=== PATIENT | female | born 1960 | race Caucasian/White ===

== ENCOUNTER 2016-12-14 12:13 | Emergency (ER) | payer BC ==
[~2016-12-14] VITALS: Ht 157.5 cm; Wt 105.2 kg
[~2016-12-14 12:13] MED LIST: ALBU17AE13 IH; BACL10TA PO; CELE200C PO; CYAN10009; DICY10CA59 PO; DIPH-179 PO; DULO60CA41 PO; ELET20TA PO; ESOM40CA PO; ESZO3TAB10 PO; FEXO60TA PO; FLUT1DIS IH; FURO10VI27 IVP; FURO40SO5 PO; GLU500 PO; HYDR4TAB26 PO; LANS30CA10 PO; LANTANAPROST OP; LORA-258 PO; LOVENOX; META800T11 PO; OLME20TA14 PO; ONDA8TAB6 PO; OXYC80TA28 PO; PROC10TA PO; REGLAN; SOM350 PO; SPIR100T24 PO; SPIRIVA INH; VENL150C2 PO; VIT1TABL67 PO; WELSR150 PO; ZOLP12.550 PO; ZOLP6.252 PO
[2016-12-14 12:53] VITALS: BP 108/70; PULSE 84; RESP 16; TEMP 97; O2SAT 95
--- NOTE | 2016-12-14 13:00 | NUR ---
Patient triaged and placed in waiting room. VSS and patient appears in no acute distress at this time. Accompanied by , awaiting available bed, and MD notified of need for MSE.
--- NOTE | 2016-12-14 13:09 | NUR ---
EMT IN TRIAGE TO DO EKG
--- NOTE | 2016-12-14 13:12 | NUR ---
DR DÍAZ MADE AWARE OF PT AND EKG SHOWN TO MD, NO FURTHER ORDERS AT THIS TIME
--- NOTE | 2016-12-14 13:44 | NUR ---
Patient to ER bed 8 to gown for evaluation. Side rails up. Report given to ARELIS SMITH.
--- NOTE | 2016-12-14 13:50 | NUR ---
when pt was brought to the room, pt states she want to leave because her has a doctors appointment. Patient urged importance to stay but pt states "Im going and ill call to see if i can come back later"
== END 2016-12-14 13:50 | disposition left against medical advice (07) ==
LOC: SED 12:13
DX: R07.9 Chest pain, unspecified (principal); Z53.21 Procedure and treatment not carried out due to patient leaving prior to being seen by health care provider
CPT/HCPCS: 93005; 99281

== ENCOUNTER 2017-09-14 15:32 | Emergency (ER) | payer BC ==
[~2017-09-14] VITALS: Ht 157.5 cm; Wt 102.1 kg
[2017-09-14 15:32] VITALS: BP_SYST 145
[~2017-09-14 15:32] MED LIST changes: -LANS30CA10 PO; -VENL150C2 PO; -ZOLP6.252 PO
[2017-09-14 16:36] VITALS: BP_SYST 140
== END 2017-09-14 16:35 | disposition home or self-care (01) ==
LOC: SED 15:32
DX: S90.31XA Contusion of right foot, initial encounter (principal); R21 Rash and other nonspecific skin eruption; J45.909 Unspecified asthma, uncomplicated; K21.9 Gastro-esophageal reflux disease without esophagitis; I10 Essential (primary) hypertension; G43.909 Migraine, unspecified, not intractable, without status migrainosus; M79.7 Fibromyalgia; Z90.49 Acquired absence of other specified parts of digestive tract; Z90.89 Acquired absence of other organs; Z90.710 Acquired absence of both cervix and uterus; Z88.6 Allergy status to analgesic agent; Z91.041 Radiographic dye allergy status; Z88.8 Allergy status to other drugs, medicaments and biological substances; W22.03XA Walked into furniture, initial encounter; Y93.01 Activity, walking, marching and hiking; Y92.89 Other specified places as the place of occurrence of the external cause; Y99.8 Other external cause status
CPT/HCPCS: 99284

== ENCOUNTER 2017-11-06 01:02 | Emergency (ER) | payer BC ==
[~2017-11-06] VITALS: Ht 157.5 cm; Wt 102.1 kg
[~2017-11-06 01:02] MED LIST changes: -ALBU17AE13 IH; +ALBU2.5V7 INH; +ALBU8.5H8 INH; -BACL10TA PO; -CELE200C PO; +CYAN100067 PO; -DICY10CA59 PO; -DIPH-179 PO; -ELET20TA PO; -ESZO3TAB10 PO; -FEXO60TA PO; -FLUT1DIS IH; -FURO10VI27 IVP; -GLU500 PO; +MAGN64TA11 PO; -OLME20TA14 PO; -OXYC80TA28 PO; +POTA20LI25 PO; -SPIRIVA INH; -VIT1TABL67 PO
[2017-11-06 01:18] VITALS: BP_SYST 119
[2017-11-06 03:30] VITALS: BP_SYST 121
== END 2017-11-06 03:30 | disposition home or self-care (01) ==
LOC: SED 01:02
DX: Z46.59 Encounter for fitting and adjustment of other gastrointestinal appliance and device (principal); J45.909 Unspecified asthma, uncomplicated; G43.909 Migraine, unspecified, not intractable, without status migrainosus; M79.7 Fibromyalgia; Z88.8 Allergy status to other drugs, medicaments and biological substances; Z79.899 Other long term (current) drug therapy
CPT/HCPCS: 99283

== ENCOUNTER 2017-12-11 14:42 | Emergency (ER) | payer BC ==
[~2017-12-11] VITALS: Ht 157.5 cm; Wt 86.2 kg
[2017-12-11 14:42] VITALS: BP_SYST 152
[2017-12-11 16:40] VITALS: BP_SYST 135
== END 2017-12-11 16:40 | disposition home or self-care (01) ==
LOC: SED 14:42
DX: M25.571 Pain in right ankle and joints of right foot (principal); J45.909 Unspecified asthma, uncomplicated; J44.9 Chronic obstructive pulmonary disease, unspecified; K21.9 Gastro-esophageal reflux disease without esophagitis; I10 Essential (primary) hypertension; G43.909 Migraine, unspecified, not intractable, without status migrainosus; Z86.79 Personal history of other diseases of the circulatory system; Z88.6 Allergy status to analgesic agent; Z88.8 Allergy status to other drugs, medicaments and biological substances; Z79.899 Other long term (current) drug therapy
CPT/HCPCS: 99284

== ENCOUNTER 2018-06-15 06:59 | Day surgery (SDC) | payer BC ==
[~2018-06-15] VITALS: Ht 157.5 cm; Wt 83.0 kg
[~2018-06-15 06:59] MED LIST changes: +CYAN100010 PO; -CYAN100067 PO; -MAGN64TA11 PO; -META800T11 PO; +META800T85 PO; -PROC10TA PO; +PROC10TA13 PO; +SLOW-MAG64 M1 PO
[2018-06-15] MEDS ORDERED: SIMETHICONE 40 MG/0.6 ML ML ONE (07:16)
[2018-06-15] MEDS ORDERED: MIDAZOLAM HCL 5 MG/5 ML VIAL IVP ONE (08:45)
[2018-06-15] MEDS ORDERED: PROPOFOL 200MG/ 20ML VIAL (DIPRIVAN) IV ONE (08:45)
[2018-06-15] MEDS ORDERED: fentaNYL CITRATE/PF 100 MCG/2 ML AMP IVP ONE (08:45)
[2018-06-15] MEDS ORDERED: D5/0.45 NS 1,000 ML IV.SOLN IV ONE (08:45)
[2018-06-15] MEDS ORDERED: WATER FOR IRRIGATION,STERILE 1,000 ML IRRIG.SOLN IR ONE (08:45)
[2018-06-15] MEDS ORDERED: LR 1,000 ML IV SCH (09:41)
[2018-06-15] MEDS ORDERED: HYDROmorphone 2 MG/ML VIAL IVP PRN ×2 (09:45)
[2018-06-15] MEDS ORDERED: HYDROmorphone 1 MG INJ. 1 MG/ML AMPUL IVP PRN (09:45)
[2018-06-15] MEDS ORDERED: MEPERIDINE HCL/PF 25 MG/ML DISP.SYRIN IVP PRN (09:45)
[2018-06-15 11:45] VITALS: BP_SYST 142
[2018-06-21] MEDS ORDERED: LEVO25TA2 PO (02:18)
[2018-06-21] MEDS ORDERED: HYDR-3698 PO (02:18)
[2018-06-21] MEDS ORDERED: POTA20TA83 PO (02:18)
[2018-06-21] MEDS ORDERED: MAGN400T10 PO ×2 (02:18)
[2018-06-21] MEDS ORDERED: ELET20TA PO (02:18)
[2018-06-21] MEDS ORDERED: FURO-149 PO (02:18)
[2018-06-21] MEDS ORDERED: ZOLP5TAB2 PO (02:18)
== END 2018-06-15 11:10 | disposition home or self-care (01) ==
LOC: SDS 06:59 → SMU 06:59 → SDS 11:10
PROVIDERS: ATTEND Internal Medicine Gastroenterology
DX: K56.699 Other intestinal obstruction unspecified as to partial versus complete obstruction (principal); Z86.010 Personal history of colon polyps; K57.30 Diverticulosis of large intestine without perforation or abscess without bleeding; J45.909 Unspecified asthma, uncomplicated; E66.01 Morbid (severe) obesity due to excess calories; E11.9 Type 2 diabetes mellitus without complications; Z88.8 Allergy status to other drugs, medicaments and biological substances; G43.909 Migraine, unspecified, not intractable, without status migrainosus; F32.9 Major depressive disorder, single episode, unspecified; Z68.33 Body mass index [BMI] 33.0-33.9, adult
CPT/HCPCS: 44382; 45331; 82962; 88305; J2250; J2704; J3010; J7120

== ENCOUNTER 2018-08-17 13:25 | Inpatient (IN) | payer BC ==
[~2018-08-17] VITALS: Ht 157.5 cm; Wt 81.2 kg
[2018-08-17 13:25] VITALS: BP_SYST 165
[~2018-08-17 13:25] MED LIST changes: +ELET20TA PO; +FURO-149 PO; +HYDR-3698 PO; +LEVO25TA2 PO; +MAGN400T10 PO; +POTA20TA83 PO; +ZOLP5TAB2 PO
--- NOTE | 2018-08-17 13:25 | NUR ---
BROUGHT BACK TO BED #4 VIA WHEELCHAIR, PLACED IN BED #4 AND TRIAGED. REPORT GIVEN TO LISA
--- NOTE | 2018-08-17 14:07 | NUR ---
Pt AAOx4 wheeled into ED from DONNA Landin's office for evaluation of abnormal lab value Magnesium 1.0. Pt recently had hernia repair sx at [facility] and was released on 07/13/2018. Pt has also recently been admitted to [facility] for Sepsis. Pt is no longer on antibiotic treatment. Pt states she took Potassium and Magnesium supplements as the low levels of magnesium and potasssium are a chronic issue. Pt skin pink dry and warm, breathing even and unlabored. No other injuries/complaints per pt/noted. Will continue to monitor.
--- NOTE | 2018-08-17 14:14 | NUR ---
ER Dr. Damian at bedside examining patient.
--- NOTE | 2018-08-17 14:45 | NUR ---
LAb at bedside for blood draw
[2018-08-17 14:58] LABS: HEMATOCRIT 40.5 % (36-48); MEAN CORPUSCULAR HEMOGLOBIN 29 pg (27-31); MEAN CORPUSCULAR HGB CONC 32 % (32-36); MEAN CORPUSCULAR VOLUME 90 fL (79.0-98.0); PLATELET COUNT (AUTO) 497 K/uL (130-430); RED BLOOD CELL COUNT(AUTO) 4.51 MIL/uL (4.2-6.2); RED CELL DISTRIBUTION WIDTH 19.2 % (9.0-15.0); WHITE BLOOD COUNT (AUTO) 9.1 K/uL (4.8-10.8)
[2018-08-17 15:07] LABS: CALCIUM 9.5 mg/dL (8.4-11.0); CREATININE 2.01 mg/dL (0.55-1.30)
[2018-08-17 15:13] LABS: TOTAL BILIRUBIN 0.8 mg/dL (0.0-1.0)
[2018-08-17 15:29] LABS: BAND % (MANUAL) 0 % (0-6); BASOPHILS % (MANUAL) 0 % (0-2); EOSINOPHILS % (MANUAL) 0 % (0-7); LYMPHOCYTES % (MANUAL) 25 % (20-46); MONOCYTES % (MANUAL) 8 % (0-11)
[2018-08-17] MEDS ORDERED: POTASSIUM CHLORIDE 10 MEQ in NACL 0.9% 1,000 ML IV SCH (15:45)
[2018-08-17] MEDS ORDERED: MAGNESIUM SULFATE 1 GM/2 ML VIAL IVP ONE (15:45)
[2018-08-17] MEDS ORDERED: MAGNESIUM SULFATE 50 ML IV ONE (16:00)
[2018-08-17] MEDS ORDERED: POTASSIUM CHLORIDE 20 MEQ/PKT PACKET PO ONE (16:00)
--- NOTE | 2018-08-17 16:29 | NUR ---
Magnesium 1g IVP administered. Pt tolerated well. No adverse reactions noted.
--- NOTE | 2018-08-17 16:39 | NUR ---
Patient will be admitted to [facility]. Admitted to TELEMETRY unit. Will go to room 101A. Summary report printed. Report will be given at bedside.
--- NOTE | 2018-08-17 16:50 | NUR ---
ADMISSION NOTE Received patient from ER via errol, received report from POWER HAIR CLIPPER. Patient admitted with diagnosis of DEHYDRATION AND HYPOKALEMIA. Patient oriented to hospital routine, call light, toileting and safety-patient verbalized understanding.
--- NOTE | 2018-08-17 16:50 | NUR ---
ADMISSION NOTE Received patient from ER via gurney. Patient admitted with diagnosis of dehydration, hypokalemia, hypomagnesia, under the care of dr nina. Patient oriented to hospital routine, call light, toileting and safety-patient verbalized understanding.
[2018-08-17 17:00] VITALS: BP_SYST 148
[2018-08-17] MEDS ORDERED: LORazepam 1 MG TABLET PO SCH (17:00)
[2018-08-17] MEDS ORDERED: cloNIDine HCL 0.1 MG TABLET PO PRN (17:00)
[2018-08-17] MEDS ORDERED: ELETRIPTAN HYDROBROMIDE 20 MG PO SCH (17:00)
[2018-08-17] MEDS ORDERED: ALBUTEROL SULFATE 0.083% 2.5 MG/3 ML VIAL.NEB INH PRN (17:00)
[2018-08-17] MEDS ORDERED: CARISOPRODOL 350 MG TABLET PO SCH (17:00)
--- NOTE | 2018-08-17 17:09 | NUR ---
dr nina at bedside
[2018-08-17] MEDS ORDERED: MORPHINE 4 MG/ML INJ. SYRINGE IVP PRN (17:15)
[2018-08-17] MEDS ORDERED: DEXTROSE 50% JECT 50 ML DISP.SYRIN IVP PRN (17:15)
[2018-08-17] MEDS ORDERED: MORPHINE 2 MG/ML INJ. SYRINGE IVP PRN (17:15)
[2018-08-17 17:22] VITALS: BP_SYST 180
[2018-08-17] MEDS: NACL 0.9% 1,000 ML IV SCH ×3 (17:48→22:19)
--- NOTE | 2018-08-17 18:29 | NUR ---
CLOSING NOTE PT SITTING UP IN BED, AT BEDSIDE, IVF INFUSING AT 500ML, IV SITE INTACT, NO S/S INFILTRATION NOTED. SAFETY PRECAUTIONS IN PLACE, CALL LIGHT WITHIN REACH, WILL GIVE REPORT TO FOLLOWING SHIFT
[2018-08-17] MEDS ORDERED: HYDROmorphone 1 MG INJ. 1 MG/ML AMPUL IVP PRN (18:30)
--- NOTE | 2018-08-17 19:30 | NUR ---
DR. JUNIOR AT BEDSIDE Dr. Junior at bedside speaking with patient and spouse.
--- NOTE | 2018-08-17 19:52 | NUR ---
OPENING NOTES Pt and endorsement received from morning shift nurse. Pt is awake, alert and lying in bed. at bed side. IVF NS 500ml/hr infusing well. Will continue to monitor. Addendum: 08/17/18 at 1957 by Rahel Alford RN Call light with pt, bed alarm on and bed at its lowest. Safety precautions instilled.
[2018-08-17 20:00] VITALS: BP_SYST 179
--- NOTE | 2018-08-17 20:06 | NUR ---
ROOM CHANGE to 110-A/ (+)MRSA Pt was moved to room 110-A due to positive MRSA of the Nares. Call light with pt, bed at its lowest and bed alarm on. Will continue to monitor. Addendum: 08/18/18 at 0053 by Rahel Alford RN ROOM WAS CHANGED DUE TO HISTORY OF MRSA. MRSA SPECIMEN OF THE NARES COLLECTED AND SENT TO THE LAB.
[2018-08-17 20:13] LABS: CALCIUM 9.3 mg/dL (8.4-11.0); CREATININE 1.79 mg/dL (0.55-1.30)
[2018-08-17 20:27] LABS: POTASSIUM 3.4 mmol/L (3.5-5.1)
[2018-08-17] MEDS: ONDANSETRON HCL 4 MG/2 ML VIAL IVP PRN (20:27)
[2018-08-17] MEDS ORDERED: POTASSIUM CHLORIDE 20 MEQ TAB.PRT.SR PO SCH (21:00)
[2018-08-17] MEDS ORDERED: POTASSIUM CHLORIDE 20 MEQ TAB.PRT.SR PO ONE (21:00)
--- NOTE | 2018-08-17 21:25 | NUR ---
RECEIVED CALL FROM DR EL. AWARE OF POTASSIUM LEVELS AND FLUID RATE. WILL PLACE NEW ORDERS. DR EL STATE "DO NOT CALL ME FOR ANY OF THOSE REASONS".
[2018-08-17] MEDS: DIPHENOXYLATE HCL/ATROP SULF 2.5 MG TAB PO PRN (21:53)
[2018-08-17] MEDS: ENOXAPARIN SODIUM 30 MG/0.3 ML SYRINGE SUBCUT SCH (21:54)
[2018-08-17] MEDS: INSULIN REGULAR, HUMAN 100 UNITS/ML, 10 ML VIAL (novoLIN R) SUBCUT PRN (22:11)
--- NOTE | 2018-08-17 22:31 | NUR ---
SURGICAL WOUND CARE PHOTOS Photo was taken of patient's surgical wound to mid abdomen area. Photo will be printed out and documented on wound care photographic wound form and placed in chart.
[2018-08-17] MEDS: HYDROmorphone 1 MG INJ. 1 MG/ML AMPUL IVP PRN (23:40)
--- NOTE | 2018-08-17 23:40 | NUR ---
DRESSING CHANGE/PAIN MED (DILAUDED 1MG) GIVEN Dressing changed on the abdominal wound. Cleaned with sterile water and applied packing strip and covered with dressing. Pt complained of abdominal pain on the wound site, Dilauded 1mg/ml IVP given as ordered. Educated on side effects of pain medication and pt acknowledges it. Call light with pt, bed at its lowest and bed alarm on. Will continue to monitor. Addendum: 08/18/18 at 0541 by Rahel Alford RN Pt's pain scale is 9/10.
[2018-08-18] VITALS (8 sets, daily range): BP systolic 125–165
[2018-08-18] MEDS: HYDROmorphone 1 MG INJ. 1 MG/ML AMPUL IVP PRN ×2 (03:55→08:01)
[2018-08-18 04:11] LABS: BILIRUBIN,URINE 3+ (NEGATIVE); BLOOD, URINE 3+ (NEGATIVE); CLARITY/URINE HAZY (CLEAR); COLOR,URINE GREEN (YELLOW); GLUCOSE,URINE TRACE (NEGATIVE); KETONES,URINE NEGATIVE (NEGATIVE); LEUKOCYTE ESTERASE ,URINE 3+ (NEGATIVE); NITRITE, URINE NEGATIVE (NEGATIVE); PH,URINE 8.5 (5.0-8.0); PROTEIN URINE TRACE (NEGATIVE); UROBILINOGEN,URINE 0.2 (0.2-1.0)
[2018-08-18 04:58] LABS: BACTERIA,URINE MANY /HPF (None Seen); MUCUS,URINE None Seen /LPF (None Seen); YEAST,URINE None Seen /HPF (None Seen)
[2018-08-18] MEDS: NACL 0.9% 1,000 ML IV SCH ×4 (05:12→22:19)
--- NOTE | 2018-08-18 05:37 | NUR ---
PAIN MED/DILAUDED 1MG/ML GIVEN Pt complained of pain on abdominal wound with a scale of 9/10. Dilauded 1mg/ml given via IVP as ordered. Educated on side effects of pain medication. Safety precautions maintained. Call light with pt, bed at its lowest and bed alarm on. Will continue to monitor.
[2018-08-18 06:13] LABS: BASOPHILS # (AUTO) 0.1 K/uL (0.0-0.2); BASOPHILS % (AUTO) 1.2 % (0.0-2.0); EOSINOPHILS % (AUTO) 0.3 % (0.0-4.0); HEMATOCRIT 31.7 % (36-48); HEMOGLOBIN 10.5 g/dL (12.0-16.0); LYMPHOCYTES # (AUTO) 2.3 K/uL (1.0-5.5); LYMPHOCYTES % (AUTO) 34.8 % (20.5-51.5); MEAN CORPUSCULAR HEMOGLOBIN 30 pg (27-31); MEAN CORPUSCULAR HGB CONC 33 % (32-36); MEAN CORPUSCULAR VOLUME 90 fL (79.0-98.0); MONOCYTES # (AUTO) 0.5 K/uL (0.0-1.0); MONOCYTES % (AUTO) 7.3 % (1.7-9.3); NEUTROPHILS # (AUTO) 3.6 K/uL (1.8-7.7); NEUTROPHILS % (AUTO) 56.4 % (40.0-70.0); PLATELET COUNT (AUTO) 345 K/uL (130-430); RED BLOOD CELL COUNT(AUTO) 3.53 MIL/uL (4.2-6.2); RED CELL DISTRIBUTION WIDTH 18.9 % (9.0-15.0); WHITE BLOOD COUNT (AUTO) 6.5 K/uL (4.8-10.8)
[2018-08-18 06:25] LABS: INR 1.1 (0.8-1.2); PROTHROMBIN TIME 11.1 SECS (9.5-12.5)
[2018-08-18] MEDS: LEVOTHYROXINE SODIUM 0.025 MG TABLET PO SCH (06:42)
[2018-08-18] MEDS: INSULIN REGULAR, HUMAN 100 UNITS/ML, 10 ML VIAL (novoLIN R) SUBCUT PRN ×2 (06:46→20:31)
[2018-08-18 06:47] LABS: CALCIUM 8.6 mg/dL (8.4-11.0); CREATININE 1.57 mg/dL (0.55-1.30)
[2018-08-18 07:01] LABS: POTASSIUM 2.7 mmol/L (3.5-5.1)
[2018-08-18 07:03] LABS: ALBUMIN 3.1 g/dL (3.4-4.8); PHOSPHORUS 3.1 mg/dL (2.7-4.5); THYROID STIMULATING HORMONE 0.98 uIu/mL (0.36-3.74); TOTAL BILIRUBIN 0.6 mg/dL (0.0-1.0)
--- NOTE | 2018-08-18 07:11 | NUR ---
REPORTED TO CRITICAL POTASSIUM OF 2.[address] NIKKO Mahajan was notified regarding patient's potassium level of 2.7. Dr. Mahajan ordered for patient to receive 60 meq potassium PO with dose to be given now.
--- NOTE | 2018-08-18 07:12 | NUR ---
ENDORSED 60 MEQ POTASSIUM ORDER TO DAY SHIFT NURSE Endorsed 60 meq potassium PO order to SARAH Mueller due to pharmacy still needing to verify order.
--- NOTE | 2018-08-18 07:13 | NUR ---
CLOSING NOTES Pt is awake, alert and lying in bed. With Cipriano at bed side. All needs attended and safety precautions maintained throughout the shift. Will endorse to morning shift nurse.
[2018-08-18] MEDS ORDERED: POTASSIUM CHLORIDE 20 MEQ TAB.PRT.SR PO ONE (07:15)
--- NOTE | 2018-08-18 08:00 | NUR ---
Opening Note received report from retail shift leader RN, pt resting in bed, A&Ox4, respirations even and unlabored on room air, pt complaint of pain 05/25, will give pain medication, no acute distress noted, IV site clean, dry, intact, and infusing well, spouse at bedside, pt educated on use of call light and asked to call for assistance, pt verbalized understanding, call light in reach, bed in low position, bed alarm on, fall, aspiration, and isolation precautions in place.
--- NOTE | 2018-08-18 08:05 | NUR ---
Pain Management/Medication pt complaint of pain / to lower back and abdomen, pt educated on use and side effects of PRN pain medication, pt verbalized understanding, tolerated medication administration well, no acute distress noted, fall, aspiration, and isolation precautions in place.
--- NOTE | 2018-08-18 08:11 | NUR ---
Medication pt and educated on medication use and side effects, pt and verbalized understanding, tolerated medication administration well, vital signs stable, no acute distress noted, fall and aspiration precautions in place.
--- NOTE | 2018-08-18 08:30 | NUR ---
Nutrition Update Rob Scale 18 noted. Pt admitted for dehydration, hypokalemia, hypomagnesemia Diet: clear liquid diet BMI: 40.2 kg/m2 RD to follow per nutrition care standards.
[2018-08-18] MEDS ORDERED: POTASSIUM CHLORIDE 20 MEQ TAB.PRT.SR PO SCH (09:00)
--- NOTE | 2018-08-18 09:25 | NUR ---
MD Rounds Dr. Junior at bedside examining pt, orders to advance diet to mechanical soft, orders for wound care received, verified with read back.
[2018-08-18] MEDS: CYANOCOBALAMIN 1000 mCg TABLET PO SCH (09:59)
[2018-08-18] MEDS: MAGNESIUM CHLORIDE 64 MG TABLET.DR PO SCH (09:59)
[2018-08-18] MEDS: PANTOPRAZOLE SODIUM 40 MG TAB PO SCH (09:59)
[2018-08-18] MEDS: ONDANSETRON HCL 4 MG/2 ML VIAL IVP PRN (10:04)
--- NOTE | 2018-08-18 10:06 | NUR ---
Nausea/Medication pt complaint of nausea, pt educated on use and side effects of PRN nausea medication and all medications, pt verbalized understanding, tolerated medication administration well, no acute distress noted, fall, aspiration, and isolation precautions in place.
--- NOTE | 2018-08-18 12:00 | NUR ---
Blood Glucose blood glucose 83, no insulin per sliding scale indicated per orders, fall, aspiration, and isolation precautions in place.
--- NOTE | 2018-08-18 12:30 | NUR ---
CM DCP ASSESSMENT DCP ASSESSMENT COMPLETED. Pt HAS INTERNAL PAIN MED PUMP; LAST FILLED ON 06/27/18 PER ; AND, Pt HAS A F/UP APPT FOR REFILL ON 09/22/18. Pt HAS A REMOTE DEVICE TO PLACE OVER PUMP TO ADMINISTER BOLUS PAIN MED DOSE NEEDED. PER Pt, THIS PAIN PUMP HAS CAUSED DIFFICULTIES WITH Pt BEING ACCEPTED TO SNFs IF THAT IS A RECOMMENDATION AT TIME OF DC. CM WILL REMAIN AVAILABLE NEEDED.
--- NOTE | 2018-08-18 12:51 | NUR ---
Dietitian Recommendations *Recommend Mechanical soft CCHO diet, Banatrol TID, Jim BID. Oral supplements will provide additional: 280 kcal and 5 gm protein daily. *Encourage pt to increase PO intake. Please see Nutritional Assessment for details. JENI, RD
[2018-08-18] MEDS ORDERED: CARVEDILOL 6.25 MG TABLET (COREG) PO ONE (13:00)
[2018-08-18] MEDS ORDERED: cloNIDine HCL 0.1 MG TABLET PO PRN (13:13)
[2018-08-18] MEDS ORDERED: MULTIVITS,CA,MINERALS/IRON/FA 1 TABLET PO ONE (13:15)
[2018-08-18] MEDS ORDERED: LACTOBACILLUS RHAMNOSUS GG 1 CAP CAPSULE PO ONE (13:15)
--- NOTE | 2018-08-18 13:24 | NUR ---
MD Rounds Dr. Mahajan at bedside speaking with pt and pts .
[2018-08-18] MEDS ORDERED: HYDROmorphone 1 MG INJ. 1 MG/ML AMPUL IVP PRN (13:30)
[2018-08-18] MEDS ORDERED: metroNIDAZOLE 250 MG TABLET PO ONE (13:45)
[2018-08-18] MEDS: HYDROmorphone 2 MG/ML VIAL IVP PRN ×4 (13:51→22:28)
[2018-08-18] MEDS ORDERED: CARISOPRODOL 350 MG TABLET PO PRN (13:58)
[2018-08-18] MEDS ORDERED: LORazepam 1 MG TABLET PO PRN (13:58)
[2018-08-18] MEDS ORDERED: cefTRIAXone 1 GM IVPB PREMIX 50 ML IV ONE (14:00)
[2018-08-18] MEDS ORDERED: LEVOFLOXACIN 500 MG/D5W 100 ML IV ONE (14:00)
--- NOTE | 2018-08-18 14:10 | NUR ---
Pain Management/Medication pt complaint of pain / to lower back and abdomen, pt educated on PRN pain medication use and side effects and all medications, pt verbalized understanding, pt tolerated medication administration well, no acute distress noted, fall and aspiration precautions in place.
[2018-08-18] MEDS: DIPHENOXYLATE HCL/ATROP SULF 2.5 MG TAB PO PRN ×2 (14:16→23:00)
--- NOTE | 2018-08-18 14:17 | NUR ---
Diarrhea/Medication pt complaint of diarrhea, lomotil indicated per orders, pt educated on use and side effects of medication, pt verbalized understanding, tolerated medication administration well, no acute distress noted, at bedside, fall, aspiration, and isolation precautions in place.
--- NOTE | 2018-08-18 14:55 | NUR ---
Medication/Wound Care pt educated on use and side effects of IV levaquin, pt verbalized understanding, tolerating medication administration well, no redness or swelling noted at IV site, pt educated on purpose and procedure for wound care, pt reports pain is controlled, wound care completed per wound care orders, pt reports pain is controlled during and after wound care, no acute distress noted, fall, aspiration, and isolation precautions in place.
--- NOTE | 2018-08-18 15:25 | NUR ---
Blood pressure BP 135/84, no PRN BP medication indicated at this time, no acute distress noted, fall and aspiration precautions in place.
[2018-08-18] MEDS: metroNIDAZOLE 250 MG TABLET PO SCH ×2 (16:03→20:22)
--- NOTE | 2018-08-18 16:05 | NUR ---
Medication pt educated on medication use and side effects, pt verbalized understanding, tolerated medication administration well, no acute distress noted, fall, aspiration, and isolation precautions in place.
--- NOTE | 2018-08-18 16:53 | NUR ---
Blood Glucose blood glucose 88, no insulin per sliding scale indicated per orders, pt resting in bed, at bedside, fall, aspiration, and isolation precautions in place.
--- NOTE | 2018-08-18 18:04 | NUR ---
Pain Management/Medication pt complaint of pain 9/10 to lower back and abdomen, pt educated on use and side effects of PRN pain medication, pt verbalized understanding, vital signs stable, pt tolerated medication administration well, no acute distress noted, fall, aspiration, and isolation precautions in place.
--- NOTE | 2018-08-18 19:10 | NUR ---
Closing Note pt resting in bed, A&Ox4, respirations even and unlabored on room air, pt reports pain is controlled, no acute distress noted, IV site clean, dry, intact, and infusing well, at bedside, pt educated on use of call light and asked to call for assistance, pt verbalized understanding, call light in reach, bed alarm on, bed in low position, fall, aspiration, and isolation precautions in place.
--- NOTE | 2018-08-18 19:15 | NUR ---
OPENING NOTES PT and endorsement received from morning shift nurse. Pt is awake, alert, and lying in bed. Cipriano at bed side. No complains at this time. No acute distress noted. Call light with pt, bed alarm on and bed at its lowest. Will continue to monitor.
[2018-08-18] MEDS: LACTOBACILLUS RHAMNOSUS GG 1 CAP CAPSULE PO SCH (20:21)
[2018-08-18] MEDS: MULTIVITS,CA,MINERALS/IRON/FA 1 TABLET PO SCH (20:21)
[2018-08-18] MEDS: CARVEDILOL 6.25 MG TABLET (COREG) PO SCH (20:22)
[2018-08-18] MEDS: ENOXAPARIN SODIUM 30 MG/0.3 ML SYRINGE SUBCUT SCH (20:27)
--- NOTE | 2018-08-18 22:22 | NUR ---
PAIN MED/DILAUDED 2MG/ML GIVEN Pt complained with back pain and abdominal wound pain with a scale of 9/10. Dilauded 2MG/ML given via IVP given as ordered. Emar saved another wrong time entry, see Emar details. Educated on side effects of pain meds and pt acknowledges it. Safety precautions maintained, call light with pt, bed at its lowest and bed alarm on. Will continue to monitor.
--- NOTE | 2018-08-18 22:38 | NUR ---
PAGING DR. EL TO REPORT POSITIVE BLOOD CULTURE RESULTS Paging Dr. El to report positive blood culture results.
--- NOTE | 2018-08-18 22:45 | NUR ---
REPORTED POSITIVE BLOOD CULTURE RESULTS TO DR. NIKKO Mahajan was made aware regarding patient's blood culture results: gram positive cocci in clusters. Dr. Mahajan ordered for patient to receive Vancomycin 1gm IV one dose only to be given now and for Dr. Dunne to be consulted for infectious disease. Will carry out.
--- NOTE | 2018-08-18 23:10 | NUR ---
SPOKE TO DR. EL Spoke to Dr. El to confirm if okay to give Vancomycin 1G to pt. See Emar for details. Reported all pt's allergies to him and he okayed to give the antibiotic.
[2018-08-18] MEDS ORDERED: VANCOMYCIN HCL 1 GM/NS PREMIX 250 ML IV ONE (23:30)
[2018-08-18] MEDS ORDERED: VANCOMYCIN HCL 1000 MG/VIAL IV ONE (23:50)
[2018-08-19 01:00] VITALS: BP_SYST 125
[2018-08-19] MEDS: HYDROmorphone 2 MG/ML VIAL IVP PRN ×6 (01:40→23:08)
--- NOTE | 2018-08-19 01:40 | NUR ---
PAIN MED/DILAUDED 2MG GIVEN Pt complained with back pain with a scale of 8/10. Dilauded 2mg/ml given via IVP as ordered. Educated on side effects of medication and pt acknowledges it. Safety precautions maintained. Call light with pt, bed at its lowest and bed alarm on. Will continue to monitor.
[2018-08-19] MEDS: DIPHENOXYLATE HCL/ATROP SULF 2.5 MG TAB PO PRN ×4 (02:08→22:23)
--- NOTE | 2018-08-19 03:55 | NUR ---
RESTING Pt is resting in bed with both eyes closed. at bed side. No signs of acute distress noted. Call light with pt, bed at its lowest and bed alarm on. Will continue to monitor.
--- NOTE | 2018-08-19 05:35 | NUR ---
CONSULTATION PAGED/CALLED Reason for Consultation: POSITIVE BLOOD CULTURE RESULTS Person Who was Notified: ANATOLY Consulting Physician: DR. MANN Ordering Physician: DR. EL
--- NOTE | 2018-08-19 06:01 | NUR ---
PAIN MED/DILAUDED 2MG GIVEN Pt complained of lower back pain with a scale of 9/10. Dilauded 2mg/ml given via IVP as ordered. Educated pt on side effects of medication and pt acknowledges it. Call light with pt, bed alarm on and at its lowest. Will continue to monitor.
[2018-08-19 06:21] LABS: BASOPHILS # (AUTO) 0.2 K/uL (0.0-0.2); BASOPHILS % (AUTO) 2.7 % (0.0-2.0); EOSINOPHILS # (AUTO) 0.1 K/uL (0.0-0.4); EOSINOPHILS % (AUTO) 1.2 % (0.0-4.0); HEMATOCRIT 32.8 % (36-48); HEMOGLOBIN 10.9 g/dL (12.0-16.0); LYMPHOCYTES # (AUTO) 3.1 K/uL (1.0-5.5); LYMPHOCYTES % (AUTO) 55.1 % (20.5-51.5); MEAN CORPUSCULAR HEMOGLOBIN 30 pg (27-31); MEAN CORPUSCULAR HGB CONC 33 % (32-36); MEAN CORPUSCULAR VOLUME 91 fL (79.0-98.0); MONOCYTES # (AUTO) 0.5 K/uL (0.0-1.0); MONOCYTES % (AUTO) 8.9 % (1.7-9.3); NEUTROPHILS # (AUTO) 1.8 K/uL (1.8-7.7); NEUTROPHILS % (AUTO) 32.1 % (40.0-70.0); PLATELET COUNT (AUTO) 265 K/uL (130-430); RED BLOOD CELL COUNT(AUTO) 3.61 MIL/uL (4.2-6.2); RED CELL DISTRIBUTION WIDTH 18.8 % (9.0-15.0); WHITE BLOOD COUNT (AUTO) 5.7 K/uL (4.8-10.8)
[2018-08-19] MEDS: LEVOTHYROXINE SODIUM 0.025 MG TABLET PO SCH (06:29)
[2018-08-19] MEDS: INSULIN REGULAR, HUMAN 100 UNITS/ML, 10 ML VIAL (novoLIN R) SUBCUT PRN ×2 (06:33→20:46)
[2018-08-19 06:49] LABS: CREATININE 1.33 mg/dL (0.55-1.30)
--- NOTE | 2018-08-19 07:15 | NUR ---
CLOSING NOTES Pt is awake, alert and lying in bed. at bed side. No acute distress noted. All needs attended and safety precautions maintained throughout the shift. Will endorse to morning shift nurse.
[2018-08-19 07:18] LABS: POTASSIUM 2.7 mmol/L (3.5-5.1)
[2018-08-19] MEDS ORDERED: POTASSIUM CHLORIDE 20 MEQ/PKT PACKET PO ONE ×2 (07:30→11:00)
[2018-08-19 07:50] LABS: TOTAL IRON BIND. CAPACITY 181 ug/dL (250-450)
[2018-08-19 07:59] LABS: RETICULOCYTE COUNT 1.4 % (0.5-1.5)
[2018-08-19 08:00] VITALS: BP_SYST 145
--- NOTE | 2018-08-19 08:00 | NUR ---
Opening Note/Refuse bed alarm received report from commercial shrimping captain RN, pt resting in bed, A&Ox4, respirations even and unlabored on room air, pt reports pain is controlled at this time, no acute distress noted, IV site clean, dry, and intact, pt educted on use of call light and asked to call for assistance, pt verbalized understanding, call light in reach, pt educated on use of bed alarm for pt safety, pt refusing bed alarm, bed in low position, fall, aspiration, and isolation precautions in place.
--- NOTE | 2018-08-19 08:29 | NUR ---
Diarrhea/Medication pt complaint of diarrhea, pt educated on use and side effects of PRN medication for diarrhea and all medications, pt verbalized understanding, tolerated medication administration well, no acute distress noted, fall, aspiration, and isolation precautions in place.
[2018-08-19] MEDS: ONDANSETRON HCL 4 MG/2 ML VIAL IVP PRN (08:36)
--- NOTE | 2018-08-19 08:41 | NUR ---
Nausea/Medication pt complaint of nausea, pt educated on use and side effects of PRN nausea medication, pt verbalized understanding, tolerated medication administration well, no acute distress noted, fall, aspiration, and isolation precautions in place.
[2018-08-19] MEDS: cefTRIAXone 1 GM IVPB PREMIX 50 ML IV SCH (09:58)
[2018-08-19] MEDS: CYANOCOBALAMIN 1000 mCg TABLET PO SCH (09:59)
[2018-08-19] MEDS: metroNIDAZOLE 250 MG TABLET PO SCH ×4 (09:59→20:32)
[2018-08-19] MEDS: MULTIVITS,CA,MINERALS/IRON/FA 1 TABLET PO SCH ×2 (09:59→20:32)
[2018-08-19] MEDS: MAGNESIUM CHLORIDE 64 MG TABLET.DR PO SCH (09:59)
[2018-08-19] MEDS: CARVEDILOL 6.25 MG TABLET (COREG) PO SCH ×2 (09:59→20:33)
[2018-08-19] MEDS: LACTOBACILLUS RHAMNOSUS GG 1 CAP CAPSULE PO SCH ×2 (09:59→20:32)
[2018-08-19] MEDS: PANTOPRAZOLE SODIUM 40 MG TAB PO SCH (10:00)
--- NOTE | 2018-08-19 10:14 | NUR ---
Pain Management/Medication pt complaint of pain 9/10 to lower back and abdomen, pt educated on use and side effects of PRN pain medication and all medications, pt verbalized understanding, tolerated medication administration well, no acute distress noted, fall and aspiration precautions in place.
[2018-08-19 10:43] VITALS: BP_SYST 140
[2018-08-19 11:35] LABS: BILIRUBIN,URINE NEGATIVE (NEGATIVE); BLOOD, URINE NEGATIVE (NEGATIVE); CLARITY/URINE CLEAR (CLEAR); COLOR,URINE YELLOW (YELLOW); GLUCOSE,URINE NEGATIVE (NEGATIVE); KETONES,URINE NEGATIVE (NEGATIVE); LEUKOCYTE ESTERASE ,URINE 1+ (NEGATIVE); NITRITE, URINE NEGATIVE (NEGATIVE); PROTEIN URINE 1+ (NEGATIVE); UROBILINOGEN,URINE 0.2 (0.2-1.0)
--- NOTE | 2018-08-19 11:42 | NUR ---
Blood Glucose/Medication blood glucose 99, no insulin indicated per sliding scale orders, pt educated on use and side effects of PO potassium, pt verbalized understanding, tolerated medication administration well, no acute distress noted, fall, aspiration, and isolation precautions in place.
[2018-08-19 11:47] LABS: BACTERIA,URINE FEW /HPF (None Seen); MUCUS,URINE 1+ /LPF (None Seen); RBC,URINE 0-3 /HPF (0-3)
--- NOTE | 2018-08-19 12:09 | NUR ---
Medication/Commode pt educated on medication use and side effects, pt verbalized understanding, tolerated medication administration well, no acute distress noted, pt assisted to bedside commode, BM x1, pt cleaned and assisted back to bed, pt in bed eating lunch, fall, aspiration, and isolation precautions in place.
--- NOTE | 2018-08-19 14:52 | NUR ---
Pain Management/Medication pt complaint of pain 9/10 to lower back and abdomen, pt educated on use and side effects of PRN pain medication, pt verbalized understanding, BP 139/79, HR 71, O2Sat 99%, respirations 17, tolerated medication administration well, no acute distress noted, fall and aspiration precautions in place.
--- NOTE | 2018-08-19 15:50 | NUR ---
Diarrhea/Medication pt complaint of diarrhea, PRN lomotil indicated per orders, pt educated on use and side effects of medication, pt verbalized understanding, tolerated medication administration well, no acute distress noted, fall, aspiration, and isolation precautions in place.
[2018-08-19] MEDS ORDERED: *CUBICIN 4 MG/KG Q48H/PHARMACY XX PRN (16:00)
--- NOTE | 2018-08-19 16:00 | NUR ---
Wound care wound care completed per guidelines, pt reports that pain is controlled, pt educated on purpose and procedure for wound care, cleansed with hydrogen peroxide, iodoform packing in place, covered with dry dressing, pt tolerated well, denies any pain during and after wound care, no acute distress noted, at bedside, fall, aspiration, and isolation precautions in place.
[2018-08-19 16:55] VITALS: BP_SYST 148
[2018-08-19] MEDS: NS IV SCH (17:11)
[2018-08-19] MEDS: DAPTOMYCIN IV SCH (17:11)
--- NOTE | 2018-08-19 17:15 | NUR ---
Medication/Blood glucose pt educated on medication use and side effects, pt verbalized understanding, tolerated medication administration well, no acute distress noted, blood glucose 116, no insulin indicated per sliding scale orders, at bedside, fall, aspiration, and isolation precautions in place.
[2018-08-19] MEDS: NACL 0.9% 1,000 ML IV SCH (18:46)
--- NOTE | 2018-08-19 18:54 | NUR ---
Pain Management/Medication pt complaint of pain 9/10 to lower back and abdomen, pt educated on use and side effects of PRN pain medication, pt verbalized understanding, BP 141/84, HR 79, respirations 17, O2Sat 97%, pt tolerated medication administration well, no acute distress noted, fall and aspiration precautions in place.
--- NOTE | 2018-08-19 19:15 | NUR ---
Closing Note pt resting in bed, A&Ox4, respirations even and unlabored on room air, pt reports pain is controlled, no acute distress noted, at bedside, IV site clean, dry, and intact, pt educated on use of call light and asked to call for assistance, pt verbalized understanding, call light in reach, bed in low position, bed alarm on, fall, aspiration, and isolation precautions in place, care endorsed to information systems security officer RN.
--- NOTE | 2018-08-19 19:20 | NUR ---
OPENING NOTES Pt is awake, alert and lying in bed. Cipriano at bed side. No complains of pain at this time and no acute distress noted. Encouraged to call when needed. Call light with pt, bed alarm on and at its lowest. Will continue to monitor.
[2018-08-19 20:00] VITALS: BP_SYST 137
[2018-08-19] MEDS: POTASSIUM CHLORIDE 20 MEQ TAB.PRT.SR PO SCH (20:33)
[2018-08-19] MEDS: ENOXAPARIN SODIUM 30 MG/0.3 ML SYRINGE SUBCUT SCH (20:39)
--- NOTE | 2018-08-19 23:08 | NUR ---
PAIN MED/DILAUDED 2MG GIVEN Pt complained of lower back pain with a scale of 8/10. Dilauded 2mg/ml given via IVP as ordered. Educated on side effects and safety precautions of the medication. Call light with pt, bed alarm on and at its lowest level. Will continue to monitor.
[2018-08-20 01:28] VITALS: BP_SYST 95
--- NOTE | 2018-08-20 02:17 | NUR ---
ROUNDS Pt is awake, alert and lying in bed while watching TV. No complains at this time. No acute distress noted. Call light with pt, bed alarm on and at its lowest level. Will continue to monitor.
[2018-08-20] MEDS: HYDROmorphone 2 MG/ML VIAL IVP PRN ×5 (03:56→21:25)
--- NOTE | 2018-08-20 03:56 | NUR ---
PAIN MED/DILAUDED 2MG GIVEN Pt complained of lower back pain with a scale of 8/10. Dilauded 2mg/ml given via IVP as ordered. Educated on side effects of pain medication and safety precautions. Encouraged to use call light when needed. Call light with pt, bed alarm on and it its lowest level. Will continue to monitor.
[2018-08-20] MEDS: NACL 0.9% 1,000 ML IV SCH (04:15)
[2018-08-20] MEDS: LEVOTHYROXINE SODIUM 0.025 MG TABLET PO SCH (06:16)
[2018-08-20 06:49] LABS: CALCIUM 8.6 mg/dL (8.4-11.0); CREATININE 1.3 mg/dL (0.55-1.30); POTASSIUM 3.2 mmol/L (3.5-5.1)
--- NOTE | 2018-08-20 07:00 | NUR ---
CLOSING NOTES Pt is awake, alert, and lying in bed. Cipriano at bed side. No signs of acute distress at the moment. All needs attended and safety precautions maintained throughout the shift. Will endorse to morning shift nurse.
[2018-08-20 07:02] LABS: BASOPHILS % (AUTO) 0.3 % (0.0-2.0); EOSINOPHILS # (AUTO) 0.1 K/uL (0.0-0.4); EOSINOPHILS % (AUTO) 2.5 % (0.0-4.0); HEMOGLOBIN 9.4 g/dL (12.0-16.0); LYMPHOCYTES % (AUTO) 42.9 % (20.5-51.5); MEAN CORPUSCULAR HEMOGLOBIN 29 pg (27-31); MEAN CORPUSCULAR HGB CONC 33 % (32-36); MEAN CORPUSCULAR VOLUME 91 fL (79.0-98.0); MONOCYTES # (AUTO) 0.5 K/uL (0.0-1.0); MONOCYTES % (AUTO) 11.4 % (1.7-9.3); NEUTROPHILS # (AUTO) 1.9 K/uL (1.8-7.7); NEUTROPHILS % (AUTO) 42.9 % (40.0-70.0); PLATELET COUNT (AUTO) 253 K/uL (130-430); RED BLOOD CELL COUNT(AUTO) 3.21 MIL/uL (4.2-6.2); RED CELL DISTRIBUTION WIDTH 19.8 % (9.0-15.0); WHITE BLOOD COUNT (AUTO) 4.5 K/uL (4.8-10.8)
[2018-08-20 08:00] VITALS: BP_SYST 145
[2018-08-20] MEDS ORDERED: COMMUNICATION ORDER XX ONE (08:00)
--- NOTE | 2018-08-20 08:00 | NUR ---
Opening notes patient received resting in bed, patient is awake, alert, and oriented, Dr. Landin at bedside seeing patient, patient denies any distress or pain at this time, educated patient on plan of care and call light system, will continue to monitor, safety precautions in place, call light system within reach.
[2018-08-20] MEDS ORDERED: LORazepam 2 MG/ML VIAL IVP PRN (08:30)
[2018-08-20] MEDS ORDERED: POTASSIUM CHLORIDE 40 MEQ, MAGNESIUM SULFATE 4 GM in 0.45% NS 250 ML IV ONE (08:30)
[2018-08-20] MEDS ORDERED: LOPERAMIDE HCL 2 MG CAPSULE PO PRN (08:30)
--- NOTE | 2018-08-20 08:47 | NUR ---
CONSULTATION PAGED REASON FOR CONSULTATION:DIARRHEA, SHORT BOWEL WAS CONSULT CALLED?:Y PERSON WHO WAS NOTIFIED:ANATOLY CONSULTING PHYSICIAN:RENO KING ( [employer]) PATIENT TRANSITION SPECIALIST SPECIALTY:GI PATIENT TRANSITION SPECIALIST PHONE NUMBER:[phone] PHYSICIAN REQUESTING:KELLY DENISE
[2018-08-20] MEDS: DIPHENOXYLATE HCL/ATROP SULF 2.5 MG TAB PO PRN (09:01)
[2018-08-20] MEDS: POTASSIUM CHLORIDE 20 MEQ TAB.PRT.SR PO SCH ×3 (10:02→21:24)
[2018-08-20] MEDS: metroNIDAZOLE 250 MG TABLET PO SCH ×4 (10:02→21:24)
[2018-08-20] MEDS: MAGNESIUM CHLORIDE 64 MG TABLET.DR PO SCH (10:02)
[2018-08-20] MEDS: CYANOCOBALAMIN 1000 mCg TABLET PO SCH (10:03)
[2018-08-20] MEDS: LACTOBACILLUS RHAMNOSUS GG 1 CAP CAPSULE PO SCH ×2 (10:03→21:24)
[2018-08-20] MEDS: PANTOPRAZOLE SODIUM 40 MG TAB PO SCH (10:03)
[2018-08-20] MEDS: MULTIVITS,CA,MINERALS/IRON/FA 1 TABLET PO SCH ×2 (10:04→21:23)
[2018-08-20] MEDS: CARVEDILOL 6.25 MG TABLET (COREG) PO SCH ×2 (10:04→21:24)
[2018-08-20] MEDS: cefTRIAXone 1 GM IVPB PREMIX 50 ML IV SCH (10:04)
--- NOTE | 2018-08-20 10:10 | NUR ---
notes- spoke to MRI staff, per staff patient can eat. MRI will be done around 12 to 1300. Patient made aware.
--- NOTE | 2018-08-20 10:20 | NUR ---
NOTES PATIENT UP AMBULATING WITH PHYSICAL THERAPY, PATIENT TOLERATING WELL WITH NO SIGNS OF PAIN, DISTRESS, OR SHORTNESS OF BREATH NOTED, WILL CONTINUE TO MONITOR, SAFETY PRECAUTIONS IN PLACE.
--- NOTE | 2018-08-20 11:48 | NUR ---
INITIAL EVALUATION HAS BEEN COMPLETED. PATIENT IS SAFE TO AMBULATE WITH NURSING. SHE SHOULD USE THE WOOD ENGRAVER WALKER/PUW.
[2018-08-20 12:02] VITALS: BP_SYST 131
--- NOTE | 2018-08-20 12:10 | NUR ---
Notes patient sitting in chair at bedside, patient denies any pain, shortness of breath, or distress at this time, patient tolerating lunch well, will continue to monitor, safety precautions in place, call light within reach.
[2018-08-20] MEDS: DIPHENOXYLATE HCL/ATROP SULF 2.5 MG TAB PO SCH ×2 (12:24→17:42)
--- NOTE | 2018-08-20 14:06 | NUR ---
NOTES X-Ray informed us that the MRI will be cancelled because it will not be able to see the abscess, paged Dr. Junior, a CT is recommended by the X-ray marine diesel technician.
[2018-08-20 16:02] VITALS: BP_SYST 132
--- NOTE | 2018-08-20 16:40 | NUR ---
NOTES PATIENT RESTING IN BED, PHOTOGRAPHS OF LOWER EXTREMITIES TAKEN, PATIENT DENIES ANY PAIN OR DISTRESS AT THIS TIME, WILL CONTINUE TO MONITOR, SAFETY PRECAUTIONS IN PLACE, CALL LIGHT WITHIN REACH.
[2018-08-20] MEDS: NS IV SCH (17:09)
[2018-08-20] MEDS: DAPTOMYCIN IV SCH (17:09)
--- NOTE | 2018-08-20 18:28 | NUR ---
CLOSING NOTE PATIENT RESTING IN BED, PATIENT IS AWAKE, TOLERATED DINNER WILL, PATIENT DENIES ANY PAIN OR DISTRESS AT THIS TIME, ALL NEEDS WERE MET THROUGHOUT SHIFT, IV PATENT AND INFUSING WELL, WILL ENDORSE REPORT TO ONCOMING NURSE, SAFETY PRECAUTIONS IN PLACE, BED IN LOWEST POSITION, CALL LIGHT WITHIN REACH, ENCOURAGED TO USE CALL LIGHT.
[2018-08-20 20:31] VITALS: BP_SYST 136
[2018-08-20] MEDS: FOLIC ACID 1 MG, THIAMINE HCL 100 MG, MAGNESIUM SULFATE 1 GM, MVI 10 ML in NACL 0.9% 1,... IV SCH (21:23)
[2018-08-20] MEDS: LOPERAMIDE HCL 2 MG CAPSULE PO SCH (21:24)
[2018-08-20] MEDS: ENOXAPARIN SODIUM 30 MG/0.3 ML SYRINGE SUBCUT SCH (21:27)
--- NOTE | 2018-08-20 21:45 | NUR ---
PATIENT AWAKE ALERT ASKING FOR PAIN MEDICATION FOR GENERAL BACK PAIN .
[2018-08-20 23:34] VITALS: BP_SYST 132
--- NOTE | 2018-08-21 | NUR ---
ASSIST PATIENT FOR BSC USE FALL MEASURES TAKEN & EFFECTIVE .
[2018-08-21] MEDS: DIPHENOXYLATE HCL/ATROP SULF 2.5 MG TAB PO PRN (00:18)
--- NOTE | 2018-08-21 00:22 | NUR ---
LOMOTIL TABLET PO GIVEN FOR LOOSE STOOL ORDERED , PATIENT AWAKE ALERT .
--- NOTE | 2018-08-21 00:24 | NUR ---
DILAUDID 2 MG IVP GIVEN FOR BACK PAIN 04/24 & HELPFUL .
[2018-08-21] MEDS: HYDROmorphone 2 MG/ML VIAL IVP PRN ×5 (01:27→18:33)
--- NOTE | 2018-08-21 02:16 | NUR ---
HOURLY ROUNDING PATIENT BACK TO BED ASSIST , NEEDED USE OF BSC LOOSE STOOLS NOTED LOMOTIL TABS HELPFUL .
--- NOTE | 2018-08-21 05:04 | NUR ---
DILAUDID 2MG SIDE EFFECTS TEACHING PATIENT VERBALIZE UNDERSTANDING CALL PHILLIPS WITH PATIENT .
[2018-08-21] MEDS: NACL 0.9% 1,000 ML IV SCH (05:38)
[2018-08-21] MEDS: LEVOTHYROXINE SODIUM 0.025 MG TABLET PO SCH (06:06)
[2018-08-21 06:58] LABS: BASOPHILS # (AUTO) 0.1 K/uL (0.0-0.2); EOSINOPHILS # (AUTO) 0.2 K/uL (0.0-0.4); EOSINOPHILS % (AUTO) 4.5 % (0.0-4.0); HEMATOCRIT 31.1 % (36-48); HEMOGLOBIN 9.9 g/dL (12.0-16.0); LYMPHOCYTES # (AUTO) 2.1 K/uL (1.0-5.5); LYMPHOCYTES % (AUTO) 41.1 % (20.5-51.5); MEAN CORPUSCULAR HEMOGLOBIN 29 pg (27-31); MEAN CORPUSCULAR HGB CONC 32 % (32-36); MEAN CORPUSCULAR VOLUME 91 fL (79.0-98.0); MONOCYTES # (AUTO) 0.5 K/uL (0.0-1.0); MONOCYTES % (AUTO) 8.9 % (1.7-9.3); NEUTROPHILS # (AUTO) 2.3 K/uL (1.8-7.7); NEUTROPHILS % (AUTO) 44.5 % (40.0-70.0); PLATELET COUNT (AUTO) 242 K/uL (130-430); WHITE BLOOD COUNT (AUTO) 5.2 K/uL (4.8-10.8)
[2018-08-21 07:39] LABS: CALCIUM 9.1 mg/dL (8.4-11.0); CREATININE 0.98 mg/dL (0.55-1.30); POTASSIUM 4.1 mmol/L (3.5-5.1)
[2018-08-21 07:53] VITALS: BP_SYST 119
--- NOTE | 2018-08-21 07:57 | NUR ---
Opening Note/Refuse bed alarm received report from night warehouse selector RN, pt resting in bed, A&Ox4, respirations even and unlabored on room air, no acute distress noted, IV site clean, dry, and intact, pt educated on use of call light and asked to call for assistance, pt verbalized understanding, call light in reach, pt educated on use of bed alarm for pt safety, pt refusing bed alarm at this time, bed in low position, fall and aspiration precautions in place.
[2018-08-21] MEDS: LACTOBACILLUS RHAMNOSUS GG 1 CAP CAPSULE PO SCH ×2 (08:08→21:04)
[2018-08-21] MEDS: DIPHENOXYLATE HCL/ATROP SULF 2.5 MG TAB PO SCH ×3 (08:08→18:32)
[2018-08-21] MEDS: PANTOPRAZOLE SODIUM 40 MG TAB PO SCH (08:08)
[2018-08-21] MEDS: MULTIVITS,CA,MINERALS/IRON/FA 1 TABLET PO SCH ×2 (08:09→21:07)
[2018-08-21] MEDS: CYANOCOBALAMIN 1000 mCg TABLET PO SCH (08:09)
[2018-08-21] MEDS: CARVEDILOL 6.25 MG TABLET (COREG) PO SCH ×2 (08:09→21:07)
[2018-08-21] MEDS: metroNIDAZOLE 250 MG TABLET PO SCH ×4 (08:09→21:04)
[2018-08-21] MEDS: LOPERAMIDE HCL 2 MG CAPSULE PO SCH ×4 (08:09→21:04)
[2018-08-21] MEDS: cefTRIAXone 1 GM IVPB PREMIX 50 ML IV SCH (08:10)
[2018-08-21] MEDS: MAGNESIUM CHLORIDE 64 MG TABLET.DR PO SCH (08:10)
[2018-08-21] MEDS: POTASSIUM CHLORIDE 20 MEQ TAB.PRT.SR PO SCH ×3 (08:10→21:04)
--- NOTE | 2018-08-21 08:18 | NUR ---
Medication pt educated on medication use and side effects, pt verbalized understanding, tolerated medication administration well, no acute distress noted, fall and aspiration precautions in place.
--- NOTE | 2018-08-21 10:15 | NUR ---
Pain Management/Medication pt complaint of pain / to lower back, pt educated on use and side effects of PRN pain medication, pt verbalized understanding, vital signs stable, pt tolerated medication administration well, no acute distress noted, fall and aspiration precautions in place.
--- NOTE | 2018-08-21 11:00 | NUR ---
Wound Care wound care completed per wound care orders, pt educated on purpose and procedure, pt reports pain is controlled, cleansed with hydrogen peroxide 3%, iodaform packing in place, covered with dry gauze dressing, pt tolerated well, pt reports pain is controlled during and after wound care, no acute distress noted, fall and aspiration precautions in place.
[2018-08-21 11:08] VITALS: BP_SYST 145
[2018-08-21 11:10] VITALS: BP_SYST 151
--- NOTE | 2018-08-21 11:30 | NUR ---
Medication/Blood Glucose pt educated on use and side effects of medication, pt verbalized understanding, tolerated medication administration well, no acute distress noted, blood glucose 107, no insulin indicated per sliding scale orders, fall and aspiration precautions in place.
[2018-08-21 12:45] VITALS: BP_SYST 151
--- NOTE | 2018-08-21 13:06 | NUR ---
Medication/Notes pt assisted to bedside commode, minimal assistance required, BMx1, pt assisted back to bed, pt educated on medication use and side effects, pt verbalized understanding, tolerated medication administration well, no acute distress noted, fall and aspiration precautions in place.
--- NOTE | 2018-08-21 13:40 | NUR ---
MD Miryam Landin at bedside examining pt. Addendum: 08/21/18 at 1419 by Ami Burrell RN add: orders to continue welbutrin and cymbalta from pts home medication.
--- NOTE | 2018-08-21 14:30 | NUR ---
Pain Management/Medication pt complaint of pain /10 to lower back, pt educated on use and side effects of PRN pain medication, pt verbalized understanding, tolerated medication administration well, no acute distress noted, fall and aspiration precautions in place.
--- NOTE | 2018-08-21 14:48 | NUR ---
Nutrition F/U Admitting Diagnosis Dehydration, Hypokalemia, Hypomagnesemia Reviewed Pertinent Medical/Surgical Hx Medical Record Patient Attending Physician Medical History Comment: Pt found w/: Acute metabolic encephalopathy, Dehydration , hypokalemia , hypomagnesemia, Lumbar spondylosis and history of lumbar disk surgery, NERY/ATN, s/p Multiple abdominal surgeries Ileostomy w /revision, Chronic pain syndrome, Opioid dependence, Morphine pump, Chronic obstructive pulmonary disease, Type 2 diabetes mellitus, Morbid obesity, Migraine headache, Chronic lower extremity edema, History of tobacco use, Major depression, Short Bowel syndrome per MD notes Subjective Information Pt seen resting in bed at time of RD visit. Pt reported that she has been eating pretty well, but stated that she continues to eat, then 2 hours later, has diarrhea. RD spoke w/ Dr. Landin at nursing station who stated that pt may require some nutrition education on short-bowel nutrition therapy and suggestions for MCT oil/MVI/mineral supplementation. RD to provide. Pt may not be optimally absorbing nutrients. Current Diet Order/Nutrition Support Mechanical soft, CCHO standard carb-60 gm, Jim BID x1 day Patient/Significant Other Able To Verbalize Education Provided Not Indicated Pertinent Medications imodium, folic acid/thiamine/magnesium sulfate/MVI/mineral/NaCl IV, lomotil, culturelle, theragran, zofran, k-dur, protonix, VIT B12, synthroid, lovenox, NaCl IV Pertinent Labs K 4.1 WNL (improved), CRE 0.98 WNL (improved), ALB 3.1L, H/H 9.9 L/31.1 L Height (Feet) 5 feet Height (Inches) 2.00 inches Weight (Pounds) 179 pounds (08/18/18) Weight (Calculated Kilograms) 81.125308 kilograms Patient Weight 81.193 kg Body Mass Index 32.74 kg/m2 Usual Weight 240 lbs %UBW 75 %IBW 163 [place]/Adjusted Body Weight 110 lb, 50 kg; Adj IBW Obesity: 127 lb, 58 kg Recent Weight Change Yes - wt loss 61 lb in 2 months (25% severe) Weight Status Obese Gastrointestinal Symptoms Diarrhea Last BM Aug 18, 2018 Difficulty With: Chewing Food Allergies Yes - coconut Usual Diet At Home soft diet, home cooked meals Skin Integrity Comment: Rob scale: 19; Per RN notes, medial R abd w/ wound; heel w/ redness Current % PO Fair (50-74%) -- 76% average PO intakes x7 meals Estimated Energy Expenditure (kcals/day) 3242-2798 kcal/day (30-35 kcal/kg Adj IBW for COPD) Estimated Protein Required (g/day) 75-100 gm/day (1.5-2 gm/kg IBW for wound healing/COPD) NEW Estimated Fluid Required (l/day) 1.7-2L/day (1 ml/kcal/day for maintenance) Problem/Etiology/Signs/Symptoms Inadequate protein intake related to irregular meal as evidenced by pt's report of 2 meals per day and unhealed wound. *ongoing Expected Outcomes/Goals Monitor pt appetite and PO intake w/ goal of pt meeting at least 75% of estimated nutritional needs, labs trending WNL, normal GI function, skin integrity/wt maintenance. Dietitian Recommendations * Recommend continuing mechanical soft, CCHO standard carb-60 gm diet, w/ Jim BID. (oral supplements will provide additional 160 kcal/day and 5 gm protein/day) * Encourage pt to increase PO intake. * Consider MCT oil w/ MVI Follow Up High Risk: F/U in 2-3 days
--- NOTE | 2018-08-21 15:04 | NUR ---
Dietitian Recommendations * Recommend continuing mechanical soft, CCHO standard carb-60 gm diet, w/ Jim BID. (oral supplements will provide additional 160 kcal/day and 5 gm protein/day) * Encourage pt to increase PO intake. * Consider MCT oil w/ MVI LP, RD Please refer to Nutrition F/U for details.
[2018-08-21 15:33] VITALS: BP_SYST 126
--- NOTE | 2018-08-21 16:15 | NUR ---
WOUND EVALUATION: Late note for 1615 secondary to patient care. Wound Consult received from Dr. Landin. Thank you, Dr. Landin, for the consult. Patient received in a Uriah Bed with a mattress, awake, alert, and oriented. Patient is able to turn in bed and use bedside commode independently. Rob Score is a 17. Past Medical History: S/P Small-Bowel obstruction, Ventral Hernia Repair, Lumbar Spondylosis, history of Lumbar Disk Surgery, Hypokalemia, Ileostomy, Chronic Pain Syndrome, Opioid Dependence, Morphine Pump, Chronic Obstructive Pulmonary Disease, Diabetes Mellitus Type II, Morbid Obesity, Migraine headaches, chronic lower extremity edema, history of tobacco use, Major Depression, multiple abdominal and back surgeries. Recent Labs: WBC 5.2, RBC 3.40, hemoglobin 9.9, hematocrit 31.1, BUN 6, creatinine 0.98, GFR 63, PSA glucose 107, albumin 3.1. Microbiology: Urine culture results negative. Stool culture and Shiga toxin results negative. MRSA screen results negative. Blood culture results in progress. Intrinsic factors that delay wound healing: COPD, Diabetes Mellitus, Hypoalbuminemia. Extrinsic factors that delay wound healing: Decreased mobility. Wound Assessment: 1. Abdomen, superior wound: Nonhealing surgical wound, present on admission. Site is in the middle of the incision, with one wound inferior, and the rest of the incisional areas are healed. Wound bed has 65% pink tissue, 20% yellow tissue, 5% black eschar, 10% brown eschar. No odor, no drainage. Wound measures 3.0 cm x 2.0 cm x 1.0 cm Undermining present from 7-8 o'clock, measuring 0.3 cm, and from 11-12 o'clock, measuring 0.2 cm. 2. Abdomen, inferior wound: Nonhealing surgical wound, present on admission. Site is in the lower third of the incision, with one wound superior, and the rest of the incisional areas are healed. Visible wound bed has is 100% pink tissue, unable to visualize color of skin and bottom of wound bed. No odor, no drainage. Wound measures 0.5 cm x 0.9 cm x 0.5 cm. 100% undermining present, measuring 0.9 cm. Recommend: Cleanse wounds with normal saline. Apply sure prep to stephanie-wounds. Apply Venelex ointment onto wound beds. Pack wounds with 1/4 inch iodoform packing strip. Cover with foam dressings. Perform wound care daily, and as needed for dressing soiling or dislodgment. 3. Buttocks/gluteal sulcus area: Erythema from IAD, present on admission. 4. Perineal area: Erythema from IAD, present on admission. Recommend: Cleanse involved areas with mild soap and water. Pat dry. Apply antifungal powder to involved areas. Perform site care twice a day, and as needed for soiling. 5. Left breast fold: Moisture associated erythema, present on admission. 6. Right breast fold: Moisture associated erythema, present on admission. Recommend: Cleanse involved areas with normal saline. Pat dry. Apply antifungal powder to involved areas. Perform site care twice a day, and as needed for soiling. May place Inter-Dry AG cloth into involved areas (change Inter-Dry cloth every 5 days, and as needed for soiling). Also recommend: Encourage and assist patient as needed with repositioning [id number]-se-womd only every 2 hours with pillow support, and off-load pressure areas with pillows for pressure re-distribution. Offload, elevate and float bilateral heels with pillows. Perform skin care and monitor skin integrity Q shift. Use moisture barrier cream on buttocks and other moisture susceptible areas QID and as needed for soiling. Addendum: 08/21/18 at 1850 by Osman Higgins RN Patient verified that she has no iodine allergy.
--- NOTE | 2018-08-21 16:50 | NUR ---
Wound Care wound care consult with Osman SMITH completed today, wound care completed per wound care orders, pt and pts educated on purpose and procedure, pt and pts verbalized understanding, pt reports pain is controlled, cleansed with NS, sureprep to periwound, hydrogel to wound bed, iodaform 1/4in packing in place, covered with foam dressing, pt reports pain was controlled during and after wound care, pt tolerated well, no acute distress noted, fall and aspiration precautions in place.
[2018-08-21] MEDS: DAPTOMYCIN IV SCH (17:36)
[2018-08-21] MEDS: NS IV SCH (17:36)
--- NOTE | 2018-08-21 17:49 | NUR ---
Medication/Blood glucose pt educated on medication use and side effects, pt verbalized understanding, tolerating medication administration well, no acute distress noted, blood glucose 120, no insulin indicated per sliding scale orders, Cipriano at bedside, fall and aspiration precautions in place.
[2018-08-21] MEDS: FOLIC ACID 1 MG, THIAMINE HCL 100 MG, MAGNESIUM SULFATE 1 GM, MVI 10 ML in NACL 0.9% 1,... IV SCH (18:32)
[2018-08-21] MEDS: BALSAM PERU/CASTOR OIL 60 GM OINT...G. TP SCH (18:45)
--- NOTE | 2018-08-21 18:45 | NUR ---
Non-Admin Venelex wound care completed today, per Osman SMITH okay to start venelex for tomorrows dressing change, informed manager shift RN.
--- NOTE | 2018-08-21 18:46 | NUR ---
Pain Management/Medication pt complaint of pain / to lower back and abdomen, pt educated on use and side effects of PRN pain medication and all medications, pt verbalized understanding, vital signs stable, tolerated medication administration well, no acute distress noted, fall and aspiration precautions in place.
--- NOTE | 2018-08-21 19:15 | NUR ---
Spoke with MD Spoke with Dr. Harding, orders to D/C mohit, verified with read back.
--- NOTE | 2018-08-21 19:24 | NUR ---
Closing Note/Refuse bed alarm pt resting in bed, A&Ox4, respirations even and unlabored on room air, pt reports pain is controlled at this time, no acute distress noted, IV site clean, dry, intact, and infusing well, pt educated on use of call light and asked to call for assistance, pt verbalized understanding, call light in reach, pt educated on use of bed alarm for pt safety, pt refusing bed alarm, bed in low position, fall and aspiration precautions in place, care endorsed to Michele SMITH.
[2018-08-21 19:53] VITALS: BP_SYST 136
--- NOTE | 2018-08-21 20:45 | NUR ---
DILAUDID 2 MG IVP ADMINISTER FOR BACK PAIN 04/24 OFF LOADIN WITH POSITION CHANGE HELPFUL .
[2018-08-21] MEDS: ENOXAPARIN SODIUM 30 MG/0.3 ML SYRINGE SUBCUT SCH (21:06)
--- NOTE | 2018-08-21 21:45 | NUR ---
PATIENT AWAKE ALERT ASSIST OUT OF BED FOR BSC , LOOSE STOOLS ARE NOTED FALL MEASURES IMPLEMENTED .
[2018-08-21] MEDS: ONDANSETRON HCL 4 MG/2 ML VIAL IVP PRN (21:47)
--- NOTE | 2018-08-21 22:56 | NUR ---
ZOFRAN 4 MG IVP ADMINISTER FOR GI UPSET & HELPFUL .
--- NOTE | 2018-08-21 22:58 | NUR ---
Z GUARD OINTMENT APPLIED TO BUTTOCKS AREAS , KEPT CLEAN & DRY NEEDED .
[2018-08-22] VITALS: BP_SYST 117
--- NOTE | 2018-08-22 00:15 | NUR ---
Re assessment for DILAUDID 2 MG IVP MEDICATION EFFECTIVE 11/25 , THIS HOUR PATIENT RESTING .
--- NOTE | 2018-08-22 04:28 | NUR ---
PATIENT AWAKE ALERT ASSIST OUT OF BED TO BSC , LOOSE STOOL NOTED LOMOTIL TABLET ADMINISTER ORDERED .
--- NOTE | 2018-08-22 05:21 | NUR ---
LEFT BREAST & RIGHT BREAST INTER DRY MOISTURE - WICKING FABRIC FOR SKIN ON SKIN , IRRITATION & ERYTHEMA / REDNESS APPLIED ORDERED , PATIENT TOLERATING .
[2018-08-22] MEDS: HYDROmorphone 2 MG/ML VIAL IVP PRN ×4 (05:51→21:55)
[2018-08-22] MEDS: DIPHENOXYLATE HCL/ATROP SULF 2.5 MG TAB PO PRN (05:51)
[2018-08-22] MEDS: LEVOTHYROXINE SODIUM 0.025 MG TABLET PO SCH (06:03)
--- NOTE | 2018-08-22 08:00 | NUR ---
OPENING NOTE Patient received resting in bed, patient is alert, awake, and oriented, assisted patient to bedside commode, patient denies any pain or distress at this time, assessment completed, educated patient on plan of care and call light system, will continue to monitor, safety precautions in place, bed in lowest position, call light within reach, encouraged to use call light.
[2018-08-22 08:02] VITALS: BP_SYST 144
[2018-08-22] MEDS: LOPERAMIDE HCL 2 MG CAPSULE PO SCH ×3 (08:20→16:47)
[2018-08-22] MEDS: DULoxetine HCL 30 MG CAPSULE.DR (CYMBALTA) PO SCH (08:20)
[2018-08-22] MEDS: CYANOCOBALAMIN 1000 mCg TABLET PO SCH (08:20)
[2018-08-22] MEDS: DIPHENOXYLATE HCL/ATROP SULF 2.5 MG TAB PO SCH ×3 (08:20→17:21)
[2018-08-22] MEDS: buPROPion HCL 150 MG TABLET.SA PO SCH (08:20)
[2018-08-22] MEDS: LACTOBACILLUS RHAMNOSUS GG 1 CAP CAPSULE PO SCH ×2 (08:20→21:46)
[2018-08-22] MEDS: MULTIVITS,CA,MINERALS/IRON/FA 1 TABLET PO SCH ×2 (08:20→21:46)
[2018-08-22] MEDS: metroNIDAZOLE 250 MG TABLET PO SCH ×4 (08:21→21:46)
[2018-08-22] MEDS: CARVEDILOL 6.25 MG TABLET (COREG) PO SCH ×2 (08:21→21:36)
[2018-08-22] MEDS: POTASSIUM CHLORIDE 20 MEQ TAB.PRT.SR PO SCH ×3 (08:21→21:46)
[2018-08-22] MEDS: PANTOPRAZOLE SODIUM 40 MG TAB PO SCH (08:21)
[2018-08-22] MEDS: cefTRIAXone 1 GM IVPB PREMIX 50 ML IV SCH (08:22)
[2018-08-22] MEDS: MAGNESIUM CHLORIDE 64 MG TABLET.DR PO SCH (08:23)
[2018-08-22] MEDS: BALSAM PERU/CASTOR OIL 60 GM OINT...G. TP SCH (08:24)
[2018-08-22] MEDS ORDERED: VANCOMYCIN HCL 1,000 MG in NS 250 ML IV ONE (09:00)
--- NOTE | 2018-08-22 09:40 | NUR ---
Nutrition Consult Nutrition Consult received for Wounds on 08/21/18 6528. Pt was seen and re-evaluated by RD for Nutrition F/U on 08/21/18. Please refer to note for details.
--- NOTE | 2018-08-22 10:18 | NUR ---
Notes patient resting in bed, patient eating at this time and tolerating well, patient denies any pain or distress at this time, will continue to monitor, safety precautions in place, bed in lowest position, bed alarm on, two side rails up, call light within reach, encouraged to use call light.
--- NOTE | 2018-08-22 10:45 | NUR ---
Discharge Planning: DCP followed up with [facility] (f [phone] p [phone]) Rosie stated there were no truck terminal manager beds. DCP faxed pt referral to [facility] (f [phone] p [phone]). [facility] (f [phone] p [phone]), [facility] (f [phone] p [phone]), [facility] (f [phone] p [phone]); DCP to follow up. Addendum: 08/22/18 at 1052 by Florinda Vallejo DP NOT PUT ON WRONG PT
[2018-08-22 11:32] VITALS: BP_SYST 138
--- NOTE | 2018-08-22 12:41 | NUR ---
Notes- Up in chair, eating lunch. pain is controlled at this time. call light within reach. Enc. to call for help as needed.
--- NOTE | 2018-08-22 14:26 | NUR ---
Notes patient resting in chair at bedside, assisted patient to bedside commode, pain is tolerated at this time, will continue to monitor, no signs of distress noted, safety precautions in place, call light within reach, encouraged to use call light.
[2018-08-22 15:27] VITALS: BP_SYST 146
--- NOTE | 2018-08-22 15:28 | NUR ---
PATIENT IS UNABLE TO PARTICIPATE IN TODAY'S TREATMENT BECAUSE OF DIARRHEA. PLAN: ATTEMPT TOMORROW.
--- NOTE | 2018-08-22 16:00 | NUR ---
NOTES/wound care patient resting in bed, performed abdominal wound care, cleaned wound with NS, applied venelex ointment, packed with iodoform, and covered with nonadherent dressing, patient denies any pain or distress at this time, will continue to monitor, safety precautions in place, call light within reach.
[2018-08-22] MEDS: ONDANSETRON HCL 4 MG/2 ML VIAL IVP PRN ×2 (16:57→22:43)
[2018-08-22 17:21] VITALS: BP_SYST 154
--- NOTE | 2018-08-22 18:24 | NUR ---
Closing note patient eating dinner in chair at bedside, no distress or pain noted, family at bedside, IVF infusing well, all needs were met throughout shift, will endorse report to oncoming nurse, safety precautions in place, call light within reach.
[2018-08-22] MEDS: FOLIC ACID 1 MG, THIAMINE HCL 100 MG, MAGNESIUM SULFATE 1 GM, MVI 10 ML in NACL 0.9% 1,... IV SCH (18:45)
--- NOTE | 2018-08-22 19:10 | NUR ---
IV in left forearm painful patient requesting new IV, attempted to start new IV twice but unsuccessful, will endorse to oncoming nurse.
[2018-08-22 20:30] VITALS: BP_SYST 151
--- NOTE | 2018-08-22 20:34 | NUR ---
INITIAL NOTE AT INITIAL ASSESSMENT, PATIENT IS RESTING IN BED, STABLE, NO SIGNS OF RESPIRATORY DISTRESS. IS AT BEDSIDE. PATIENT VERBALIZES TOLERABLE. PLAN OF CARE FOR THE EVENING IS COMMUNICATED WITH THE PATIENT. CALL LIGHT- TEACH BACK IS SUCCESSFUL. BED IS LOCKED, ALARMED, AND AT THE LOWEST LEVEL. FALL AND SAFETY PRECAUTIONS WILL BE IN PLACE THROUGHOUT THE SHIFT.
--- NOTE | 2018-08-22 20:36 | NUR ---
BED ALARM REFUSAL PATIENT IS REFUSING BED ALARM DESPITE EDUCATIONAL EFFORTS. SHE VERBALIZES THIS IS BECAUSE SHE "CONSTANTLY HAS TO USE THE COMMODE FOR DIARRHEA". SHE IS ASSESSED WITH STEADY GAIT WITH WALKER WITHOUT ASSIST.
[2018-08-22] MEDS ORDERED: VANCOMYCIN HCL 750 MG in NS 250 ML IV SCH (21:00)
[2018-08-22] MEDS ORDERED: NYSTATIN 15 GM TOPICAL POWDER TP SCH (21:30)
[2018-08-22] MEDS: ENOXAPARIN SODIUM 30 MG/0.3 ML SYRINGE SUBCUT SCH (21:37)
[2018-08-22] MEDS ORDERED: NYSTATIN 30 GM TOPICAL CREAM TP SCH ×2 (21:45→22:30)
--- NOTE | 2018-08-22 21:50 | NUR ---
OLD IV D/V, NEW IV PLACED OLD IV HAS BEEN D/C DUE TO PATIENT'S COMPLAINT OF PAIN, TIP INTACT, NO ACTIVE BLEED. NEW IV PLACED ON RIGHT FOREARM, 20 GAUGE, 10 MLS FLUSHED WITH NO RESISTANCE. PATIENT TOLERATED WELL.
[2018-08-22] MEDS ORDERED: CYANOCOBALAMIN 1000 MCG/ML VIAL IM SCH (22:00)
--- NOTE | 2018-08-22 23:48 | NUR ---
NOTE PATIENT IS RESTING IN BED, STABLE, NO SIGNS OF RESPIRATORY DISTRESS. CALL LIGHT WITHIN REACH. BED IS LOCKED, AND AT THE LOWEST LEVEL.
[2018-08-23 00:58] VITALS: BP_SYST 120
--- NOTE | 2018-08-23 01:45 | NUR ---
NOTE PATIENT IS RESTING IN BED, STABLE, NO SIGNS OF RESPIRATORY DISTRESS. PATIENT VERBALIZES PAIN, PATIENT AGREES FOR PLAN TO GET PRN PAIN MEDICATION ONCE IT IS DUE PER MD ORDERS. CALL LIGHT WITHIN REACH. BED IS LOCKED, AND AT THE LOWEST LEVEL.
[2018-08-23] MEDS: HYDROmorphone 2 MG/ML VIAL IVP PRN ×6 (02:12→23:08)
--- NOTE | 2018-08-23 03:43 | NUR ---
NOTE PATIENT IS SLEEPING, STABLE, NO SIGNS OF RESPIRATORY DISTRESS. CALL LIGHT WITHIN REACH. BED IS LOCKED, AND AT THE LOWEST LEVEL.
--- NOTE | 2018-08-23 05:41 | NUR ---
NOTE PATIENT IS SLEEPING, STABLE, NO SIGNS OF RESPIRATORY DISTRESS. CALL LIGHT WITHIN REACH. BED IS LOCKED, AND AT THE LOWEST LEVEL.
[2018-08-23] MEDS: LEVOTHYROXINE SODIUM 0.025 MG TABLET PO SCH (06:27)
--- NOTE | 2018-08-23 06:35 | NUR ---
CLOSING NOTE PATIENT IS RESTING IN BED, STABLE, NO SIGNS OF RESPIRATORY DISTRESS. PATIENT VERBALIZES PAIN, PRN MEDICATION FOR PAIN IS GIVEN TO PATIENT. BLOOD SUGAR CHECK AT THIS TIME IS WNL, NO INSULIN COVERAGE IS NECESSARY. CALL LIGHT WITHIN REACH. BED IS LOCKED, AND AT THE LOWEST LEVEL. WILL CONTINUE TO MONITOR UNTIL SHIFT REPORT IS GIVEN AT BEDSIDE TO AM NURSE.
[2018-08-23 07:47] LABS: CREATININE 1.11 mg/dL (0.55-1.30); POTASSIUM 4.2 mmol/L (3.5-5.1)
--- NOTE | 2018-08-23 07:55 | NUR ---
OPENING NOTE PATIENT RECEIVED RESTING IN BED, NO SIGNS OF PAIN OR DISTRESS IS NOTED, IVF INFUSING WELL, PATIENT STATING DIARRHEA IS STILL PERSISTING, ASSESSMENT COMPLETED, VITAL SIGNS ARE STABLE, NO SHORTNESS OF BREATH, EDUCATED PATIENT ON PLAN OF CARE AND CALL LIGHT SYSTEM. WILL CONTINUE TO MONITOR, SAFETY PRECAUTIONS IN PLACE, BED IN LOWEST POSITION, TWO SIDE RAILS UP, CALL LIGHT WITHIN REACH, ENCOURAGED TO USE CALL LIGHT.
[2018-08-23 08:22] VITALS: BP_SYST 123
[2018-08-23] MEDS: PANTOPRAZOLE SODIUM 40 MG TAB PO SCH (08:59)
[2018-08-23] MEDS: DIPHENOXYLATE HCL/ATROP SULF 2.5 MG TAB PO SCH ×3 (08:59→17:55)
[2018-08-23] MEDS: CARVEDILOL 6.25 MG TABLET (COREG) PO SCH ×2 (09:00→21:10)
[2018-08-23] MEDS: DULoxetine HCL 30 MG CAPSULE.DR (CYMBALTA) PO SCH (09:00)
[2018-08-23] MEDS: LACTOBACILLUS RHAMNOSUS GG 1 CAP CAPSULE PO SCH ×2 (09:00→21:09)
[2018-08-23] MEDS: buPROPion HCL 150 MG TABLET.SA PO SCH (09:00)
[2018-08-23] MEDS: POTASSIUM CHLORIDE 20 MEQ TAB.PRT.SR PO SCH ×3 (09:01→21:10)
[2018-08-23] MEDS: MULTIVITS,CA,MINERALS/IRON/FA 1 TABLET PO SCH ×2 (09:01→21:09)
[2018-08-23] MEDS: LOPERAMIDE HCL 2 MG CAPSULE PO SCH ×4 (09:01→21:09)
[2018-08-23] MEDS: metroNIDAZOLE 250 MG TABLET PO SCH ×2 (09:01→12:28)
[2018-08-23] MEDS: cefTRIAXone 1 GM IVPB PREMIX 50 ML IV SCH (09:02)
[2018-08-23] MEDS: CHOLESTYRAMINE/SUCROSE 4 GM/PACKET PO SCH ×3 (09:02→21:11)
[2018-08-23] MEDS: NYSTATIN 15 GM TOPICAL POWDER TP SCH ×3 (09:02→20:11)
[2018-08-23] MEDS: BALSAM PERU/CASTOR OIL 60 GM OINT...G. TP SCH (09:03)
[2018-08-23] MEDS: MAGNESIUM CHLORIDE 64 MG TABLET.DR PO SCH ×2 (09:03→21:22)
--- NOTE | 2018-08-23 10:33 | NUR ---
NOTES PATIENT RESTING IN CHAIR AT BEDSIDE, ASSISTED PATIENT TO BEDSIDE COMMODE, NO SIGNS OF DISTRESS AT THIS TIME, PATIENT TOLERATED BREAKFAST WELL, WILL CONTINUE TO MONITOR, SAFETY PRECAUTIONS IN PLACE, CALL LIGHT WITHIN REACH, ENCOURAGED TO USE CALL LIGHT.
[2018-08-23] MEDS ORDERED: CYANOCOBALAMIN 1000 MCG/ML VIAL IM ONE (11:00)
--- NOTE | 2018-08-23 11:30 | NUR ---
Latha Landin regarding patient's blood pressure. Addendum: 08/23/18 at 1158 by Crystal Evans RN disregard note, wrong patient.
[2018-08-23 12:20] VITALS: BP_SYST 131
--- NOTE | 2018-08-23 12:28 | NUR ---
Discharge Planning: DCP faxed order to [facility] (f [phone] p [phone]); spoke to Emily dickerson pt.
--- NOTE | 2018-08-23 12:31 | NUR ---
Notes patient eating lunch in chair at bedside, patient denies any pain or distress at this time, no other needs at this time, will continue to monitor, safety precautions in place, call light within reach, encouraged to use call light.
--- NOTE | 2018-08-23 14:30 | NUR ---
NOTES PATIENT RESTING IN BED, PAIN IS CONTROLLED AT THIS TIME, FAMILY IS AT BEDSIDE, PATIENT DENIES ANY DISTRESS AT THIS TIME, WILL CONTINUE TO MONITOR, SAFETY PRECAUTIONS IN PLACE, CALL LIGHT WITHIN REACH.
[2018-08-23 16:29] VITALS: BP_SYST 127
--- NOTE | 2018-08-23 16:35 | NUR ---
Notes patient resting in bed with family at bedside, assisted patient to bedside commode, IVF infusing well, no signs of pain or distress is noted at this time, no other needs at this time, safety precautions in place, bed in lowest position, encouraged patient to use call light, call light within reach.
--- NOTE | 2018-08-23 16:59 | NUR ---
PHYSICAL THERAPY TREATMENT WAS WITHHELD PER PATIENT'S REQUEST BECAUSE SHE CONTINUES TO HAVE DIARRHEA. SHE HAS BEEN GETTING OUT OF BED WITH NURSING SUPERVISED ASSISTANCE.
--- NOTE | 2018-08-23 17:27 | NUR ---
Notes/ Wound Care patient resting in bed with family at bedside, performed wound care, cleansed wound with NS, applied Venelex ointment, and packed with iodoform, applied foam dressing, no signs of pain or distress at this time, will continue to monitor, safety precautions in place, call light within reach, bed in lowest position.
--- NOTE | 2018-08-23 18:34 | NUR ---
CLOSING NOTE PATIENT EATING DINNER IN CHAIR AT BEDSIDE, FAMILY IS AT BEDSIDE, PAIN IS CONTROLLED AT THIS TIME, IVF INFUSING WELL, ALL NEEDS WERE MET THROUGHOUT SHIFT, NO SIGNS OF DISTRESS NOTED AT THIS TIME, WILL ENDORSE REPORT TO ONCOMING NURSE, SAFETY PRECAUTIONS IN PLACE, CALL LIGHT WITHIN REACH, ENCOURAGED TO USE CALL LIGHT.
[2018-08-23] MEDS: FOLIC ACID 1 MG, THIAMINE HCL 100 MG, MAGNESIUM SULFATE 1 GM, MVI 10 ML in NACL 0.9% 1,... IV SCH (20:11)
[2018-08-23 20:18] VITALS: BP_SYST 130
--- NOTE | 2018-08-23 20:18 | NUR ---
Opening notes Pt AAO x 4. VSS. No s/s distress noted. Pt sitting in the chair. at bedside. IV banana bag administered as ordered R forearm IV no s/s infiltration noted. Pt still c/o diarrhea. Call light within reach. Will continue to monitor.
[2018-08-23] MEDS: ENOXAPARIN SODIUM 30 MG/0.3 ML SYRINGE SUBCUT SCH (21:14)
[2018-08-23] MEDS: ONDANSETRON HCL 4 MG/2 ML VIAL IVP PRN (23:00)
--- NOTE | 2018-08-23 23:08 | NUR ---
Pain mgmt Pt awake, c/o 06/25 chronic back pain. Medicated with Dilaudid 2mg IVP as needed. Call light within reach. To monitor.
[2018-08-23] MEDS: DIPHENOXYLATE HCL/ATROP SULF 2.5 MG TAB PO PRN (23:09)
[2018-08-24] VITALS: BP_SYST 117
[2018-08-24] MEDS: HYDROmorphone 2 MG/ML VIAL IVP PRN ×4 (02:55→14:43)
--- NOTE | 2018-08-24 02:55 | NUR ---
Pain mgmt Pt asleep, easily arousable. Pt c/o 06/25 chronic back pain. Medicated with Dilaudid 2mg IVP as needed on R. forearm 20G no infiltration noted. Safety measures in place. Call light within reach. To monitor.
--- NOTE | 2018-08-24 05:09 | NUR ---
Rounds Pt asleep. No s/s distress noted. IV banana bag infusing as ordered R. AC 20G no infiltration noted. Call light within reach. Safety measures in place. To monitor.
[2018-08-24] MEDS: LEVOTHYROXINE SODIUM 0.025 MG TABLET PO SCH (06:34)
--- NOTE | 2018-08-24 06:45 | NUR ---
Closing notes Pt awake, drowsy, c/o back pain 06/25. No s/s distress noted. Medicated with Dilaudid 2mg IVP as needed. Banana bag completed. IV saline locked clear, patent. Blood sugar checked 95 this am, no indication for insulin per protocol. Call light/phone within easy reach. Safety measure in place. To endorse to AM nurse.
[2018-08-24 07:27] LABS: CREATININE 1.14 mg/dL (0.55-1.30)
[2018-08-24 08:30] VITALS: BP_SYST 111
[2018-08-24] MEDS: cefTRIAXone 1 GM IVPB PREMIX 50 ML IV SCH (08:33)
[2018-08-24] MEDS: MAGNESIUM CHLORIDE 64 MG TABLET.DR PO SCH (08:34)
[2018-08-24] MEDS: PANTOPRAZOLE SODIUM 40 MG TAB PO SCH (08:36)
[2018-08-24] MEDS: buPROPion HCL 150 MG TABLET.SA PO SCH (08:38)
[2018-08-24] MEDS: POTASSIUM CHLORIDE 20 MEQ TAB.PRT.SR PO SCH ×2 (08:38→14:43)
[2018-08-24] MEDS: CHOLESTYRAMINE/SUCROSE 4 GM/PACKET PO SCH ×2 (08:38→14:43)
[2018-08-24] MEDS: CARVEDILOL 6.25 MG TABLET (COREG) PO SCH (08:38)
[2018-08-24] MEDS: DIPHENOXYLATE HCL/ATROP SULF 2.5 MG TAB PO SCH ×2 (08:39→12:03)
[2018-08-24] MEDS: LOPERAMIDE HCL 2 MG CAPSULE PO SCH ×2 (08:40→12:03)
[2018-08-24] MEDS: DULoxetine HCL 30 MG CAPSULE.DR (CYMBALTA) PO SCH (08:40)
[2018-08-24] MEDS: LACTOBACILLUS RHAMNOSUS GG 1 CAP CAPSULE PO SCH (08:40)
[2018-08-24] MEDS: NYSTATIN 15 GM TOPICAL POWDER TP SCH ×2 (08:41→14:44)
[2018-08-24] MEDS: MULTIVITS,CA,MINERALS/IRON/FA 1 TABLET PO SCH (08:41)
[2018-08-24] MEDS: BALSAM PERU/CASTOR OIL 60 GM OINT...G. TP SCH (08:42)
--- NOTE | 2018-08-24 08:49 | NUR ---
OPENING NOTE REPORT IS RECEIVED FROM MATHS TUTOR NURSE AND CARE IS ENDORSED TO MYSELF. PT IS RECEIVED AWAKE, ALERT, AND ORIENTED X4. MORNING VITAL SIGNS ARE STABLE, PT DENIES ANY PAIN. MORNING MEDICATIONS WERE GIVEN BY MOUTH AND TOLERATED WELL. WHITE BOARD IS UPDATED AND PLAN OF CARE IS DISCUSSED. CURRENT NEEDS ARE MET. BED IS AT LOWEST POSITION, CALL LIGHT WITHIN REACH, TWO SIDE RAILS UP, BED ALARM IS ON. WILL CONTINUE TO MONITOR.
--- NOTE | 2018-08-24 10:32 | NUR ---
ROUNDS PT IS AWAKE AND ALERT. PT CONTINUES TO HAVE EPISODES OF DIARRHEA. NO SIGNS OR SYMPTOMS OF DISTRESS OR SOB NOTED. PT IS COMPLAINING OF BACK PAIN OF 8 OUT 10. GAVE PRN DILAUDID. ADVISED PT OF INCREASED RISK FOR FALLS AND THE NEED TO USE CALL LIGHT IF SHE WANTS TO GET IN AND OUT OF BED. PT VERBALIZED UNDERSTANDING. CURRENT NEEDS ARE MET. BED IS AT LOWEST POSITION, CALL LIGHT WITHIN REACH, TWO SIDE RAILS UP. WILL CONTINUE TO MONITOR.
[2018-08-24] MEDS: ONDANSETRON HCL 4 MG/2 ML VIAL IVP PRN (12:03)
[2018-08-24 12:11] VITALS: BP_SYST 120
--- NOTE | 2018-08-24 12:14 | NUR ---
ROUNDS PT IS AWAKE AND ALERT. PT CONTINUES TO HAVE EPISODES OF DIARRHEA. NO SIGNS OR SYMPTOMS OF DISTRESS OR SOB NOTED. PT STATES CURRENT PAIN LEVEL IS TOLERABLE AT A 6 OUT OF 10. PT COMPLAINED OF NAUSEA AND GAVE PRN ZOFRAN IV PUSH. CURRENT NEEDS ARE MET. BED IS AT LOWEST POSITION, CALL LIGHT WITHIN REACH, TWO SIDE RAILS UP. WILL CONTINUE TO MONITOR.
[2018-08-24 12:55] VITALS: BP_SYST 122
--- NOTE | 2018-08-24 14:40 | NUR ---
ROUNDS PT IS AWAKE AND ALERT. PT CONTINUES TO HAVE EPISODES OF DIARRHEA. NO SIGNS OR SYMPTOMS OF DISTRESS OR SOB NOTED. PT IS COMPLAINING OF BACK PAIN OF 8 OUT 10. GAVE PRN DILAUDID. ADVISED PT OF INCREASED RISK FOR FALLS AND THE NEED TO USE CALL LIGHT IF SHE WANTS TO GET IN AND OUT OF BED. PT VERBALIZED UNDERSTANDING. SPOUSE IS AT BEDSIDE. CURRENT NEEDS ARE MET. BED IS AT LOWEST POSITION, CALL LIGHT WITHIN REACH, TWO SIDE RAILS UP. WILL CONTINUE TO MONITOR.
[2018-08-24 16:10] VITALS: BP_SYST 122
--- NOTE | 2018-08-24 16:16 | NUR ---
PT TEACHING ON WOUND CARE WOUND CARE WAS PERFORMED ON PT WITH PRESENT AND STEP BY STEP INSTRUCTIONS WERE GIVEN ON HOW TO PERFORM WOUND CARE. EXTRA SUPPLIES WERE GIVEN TO HOLD PT OVER UNTIL HOME [facility]ALTH [facility] CONTACTS PT TO PERFORM WOUND CARE. PT AND SPOUSE VERBALIZED UNDERSTANDING.
[2018-08-24] MEDS ORDERED: COR6.25 PO (16:18)
[2018-08-24] MEDS ORDERED: NYST15PO2 TP (16:18)
[2018-08-24] MEDS ORDERED: IMO2 PO (16:18)
[2018-08-24] MEDS ORDERED: Cholestyramine/Sucrose PO (16:18)
[2018-08-24] MEDS ORDERED: LOM2.5 PO (16:18)
--- NOTE | 2018-08-24 16:43 | NUR ---
Booker BAZAN, confirmed with Emily that land leasing information clerk nurse is scheduled to see the pt. tomorrow. Pt spouse also confirmed spoken with [facility] nurse today for visiting schedule and blood drawn on Friday 08/17. CM faxed an additional order for blood drawn on Friday 08/17 for CBC with diff, BMP, and magnesium level. fax# [phone], tel# [phone].
--- NOTE | 2018-08-24 16:44 | NUR ---
Nutrition F/U Admitting Diagnosis Dehydration, Hypokalemia, Hypomagnesemia Reviewed Pertinent Medical/Surgical Hx Medical Record Patient Medical History Comment: Pt found w/: Acute metabolic encephalopathy, Dehydration , hypokalemia , hypomagnesemia, Lumbar spondylosis and history of lumbar disk surgery, NERY/ATN, s/p Multiple abdominal surgeries Ileostomy w /revision, Chronic pain syndrome, Opioid dependence, Morphine pump, Chronic obstructive pulmonary disease, Type 2 diabetes mellitus, Morbid obesity, Migraine headache, Chronic lower extremity edema, History of tobacco use, Major depression, Short Bowel syndrome per MD notes Subjective Information Pt seen resting in bed at time of RD visit. Pt reported that her appetite has improved, but continues w/ diarrhea. Pt had no nutrition-related concerns. Current diet remains appropriate. Current Diet Order/Nutrition Support Mechanical soft, low fat, CCHO standard carb-60 gm, Jim BID, Banana Flakes BID x2 days Patient/Significant Other Able To Verbalize Education Provided Not Indicated Pertinent Medications imodium, folic acid/thiamine/magnesium sulfate/MVI/mineral/NaCl IV, lomotil, culturelle, theragran, zofran, k-dur, protonix, synthroid, lovenox Pertinent Labs Reviewed Height (Feet) 5 feet Height (Inches) 2.00 inches Weight (Pounds) 179 pounds (08/18/18) Weight (Calculated Kilograms) 81.539775 kilograms Patient Weight 81.193 kg Body Mass Index 32.74 kg/m2 Usual Weight 240 lbs %UBW 75 %IBW 163 [place]/Adjusted Body Weight 110 lb, 50 kg; Adj IBW Obesity: 127 lb, 58 kg Recent Weight Change Yes - wt loss 61 lb in 2 months (25% severe) Weight Status Obese Gastrointestinal Symptoms Diarrhea Last BM 08/23/18 Difficulty With: Chewing Food Allergies Yes - coconut Usual Diet At Home soft diet, home cooked meals Skin Integrity Comment: Rob scale: 17; Per RN notes, medial R abd w/ wound; heel w/ redness Current % PO 85% average x6 meals (improved) -- good Estimated Energy Expenditure (kcals/day) 3171-4598 kcal/day (30-35 kcal/kg Adj IBW for COPD) Estimated Protein Required (g/day) 75-100 gm/day (1.5-2 gm/kg IBW for wound healing/COPD) NEW Estimated Fluid Required (l/day) 1.7-2L/day (1 ml/kcal/day for maintenance) Problem/Etiology/Signs/Symptoms Inadequate protein intake related to irregular meal as evidenced by pt's report of 2 meals per day and unhealed wound. *ongoing Expected Outcomes/Goals Monitor pt appetite and PO intake w/ goal of pt meeting at least 75% of estimated nutritional needs, labs trending WNL, normal GI function, skin integrity/wt maintenance. Dietitian Recommendations * Recommend continuing mechanical soft, low fat CCHO standard carb-60 gm diet, w/ Jim BID, Banana Flakes BID (oral supplements will provide additional 160 kcal/day and 5 gm protein/day) * Encourage pt to increase PO intake. * Consider MCT oil w/ MVI Follow Up Moderate Risk: F/U in 3-5 days
--- NOTE | 2018-08-24 16:51 | NUR ---
Dietitian Recommendations * Recommend continuing mechanical soft, low fat CCHO standard carb-60 gm diet, w/ Jim BID, Banana Flakes BID (oral supplements will provide additional 160 kcal/day and 5 gm protein/day) * Encourage pt to increase PO intake. * Consider MCT oil w/ MVI LP, RD Please refer to Nutrition F/U for details.
--- NOTE | 2018-08-24 17:00 | NUR ---
D/C Patient Patient given medication reconciliation form and D/C instructions. Exit Care provided. Patient verbalized understanding. MD discussed with patient the results and treatment provided. Ambulatory with steady gait for discharge to home. Patient in stable condition, ID band removed. IV catheter removed, intact and dressing applied, no active bleeding. Rx of LOMOTIL given. Patient educated on pain management. All belongings sent with patient.
== END 2018-08-24 17:00 | disposition home health service (06) | DRG 862 ==
LOC: SED 13:25 → STU 15:58 → UNDOADMIN 15:58 → STU 17:04
PROVIDERS: ADMIT Internal Medicine; ATTEND Internal Medicine
DX: T81.40XA Infection following a procedure, unspecified, initial encounter (principal); A41.2 Sepsis due to unspecified staphylococcus; G92 Toxic encephalopathy; N17.0 Acute kidney failure with tubular necrosis; K63.2 Fistula of intestine; N39.0 Urinary tract infection, site not specified; L03.818 Cellulitis of other sites; F11.20 Opioid dependence, uncomplicated; K91.2 Postsurgical malabsorption, not elsewhere classified; F32.9 Major depressive disorder, single episode, unspecified; E66.01 Morbid (severe) obesity due to excess calories; E86.0 Dehydration; G89.4 Chronic pain syndrome; J44.9 Chronic obstructive pulmonary disease, unspecified; G43.909 Migraine, unspecified, not intractable, without status migrainosus; E83.42 Hypomagnesemia; E87.6 Hypokalemia; N18.3 Chronic kidney disease, stage 3 (moderate); I12.9 Hypertensive chronic kidney disease with stage 1 through stage 4 chronic kidney disease, or unspecified chronic kidney disease; E03.9 Hypothyroidism, unspecified; G47.33 Obstructive sleep apnea (adult) (pediatric); Y83.8 Other surgical procedures as the cause of abnormal reaction of the patient, or of later complication, without mention of misadventure at the time of the procedure; E11.22 Type 2 diabetes mellitus with diabetic chronic kidney disease; K21.9 Gastro-esophageal reflux disease without esophagitis; Z78.9 Other specified health status; Z87.891 Personal history of nicotine dependence; Z88.8 Allergy status to other drugs, medicaments and biological substances; Z88.6 Allergy status to analgesic agent; Z88.1 Allergy status to other antibiotic agents; Z91.041 Radiographic dye allergy status; Z79.899 Other long term (current) drug therapy; Z90.710 Acquired absence of both cervix and uterus; Z90.49 Acquired absence of other specified parts of digestive tract; Y92.89 Other specified places as the place of occurrence of the external cause; Z68.32 Body mass index [BMI] 32.0-32.9, adult
CPT/HCPCS: 36415; 80048; 80053; 81000-TC; 82962; 83036; 83540-TC; 83550-TC; 83605; 83735-TC; 84100-TC; 84132-TC; 84439; 84443-TC; 85007; 85025; 85027; 85044-TC; 85610-TC; 87040-TC; 87045-TC; 87046; 87081; 87086; 89055; 94640; 94760; 96365; 96375; 97116-GP; 97530-GP; 99285; J0696; J0878; J1170; J1650; J1815; J1956; J2405; J3370; J3411; J3420; J3475; J3480; J3490; J7030; J7050; J7613